=== PATIENT | female | born 1995 | race Caucasian/White ===

== ENCOUNTER 2017-10-18 15:28 | Emergency (ER) | payer OTHER ==
--- NOTE | 2017-10-18 16:50 | ER ---
Nurse's Notes [facility] Name: Anthony Johnson Age: 21 yrs Sex: Female : 1995 Arrival Date: 10/18/2017 Time: 15:29 Bed 19 Private MD: Diagnosis: Cellulitis of right lower limb;abrasion and avulsion areas to right lower leg Presentation: 10/18 15:46 Presenting complaint: Patient states: Painful wound to RIGHT lower leg after jumping hb into [place] 2 nights ago. Transition of care: patient was not received from another setting of care. Onset of symptoms was October 16, 2017. Care prior to arrival: None. 15:46 Method Of Arrival: Ambulatory hb 15:46 Acuity: BAM 4 hb Triage Assessment: 16:38 General: Appears in no apparent distress. uncomfortable, Behavior is calm, cooperative, hj appropriate for age. Pain: Complains of pain in right leg. 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 - Social history:: Smoking status: Patient/guardian denies using tobacco. Screenin:37 Abuse screen: Denies threats or abuse. Denies injuries from another. Nutritional hj screening: No deficits noted. Tuberculosis screening: No symptoms or risk factors identified. Fall Risk None identified. Vital Signs: 15:45 BP 138 / 81; Pulse 83; Resp 16; Temp 98.1; Pulse Ox 100% on R/A; Weight 72.57 kg; hb Height 5 ft. (152.40 cm); Pain 10/10; 17:14 BP 132 / 75; Pulse 85; Resp 18; Pulse Ox 100% on R/A; hj 15:45 Body Mass Index 31.25 (72.57 kg, 152.40 cm) hb ED Course: 15:29 Patient arrived in ED. as 15:48 Triage completed. hb 15:49 Arm band placed on left wrist. hb 16:30 [facility] snw 16:30 Elliott Hernandez MD is Attending Physician. snw 16:37 Skinny Henao, RN is Primary Nurse. hj 16:38 Patient has correct armband on for positive identification. Placed in gown. Bed in low hj position. Call light in reach. Side rails up X 1. 17:14 No provider procedures requiring assistance completed. Patient did not have IV access hj during this emergency room visit. Administered Medications: 16:42 Drug: Doxycycline 100 mg Route: PO; hj 17:06 Follow up: Response: No adverse reaction hj 16:42 Drug: Bactrim (160 mg-800 mg (DS) 1 tablet Route: PO; hj 17:06 Follow up: Response: No adverse reaction hj 16:42 Drug: [place] 5 mg-325 mg 1 tabs Route: PO; hj 17:06 Follow up: Response: No adverse reaction; Pain is decreased hj Outcome: 16:49 Discharge ordered by MD. snw 17:14 Discharged to home ambulatory, with family. hj 17:14 Condition: stable 17:14 Discharge instructions given to patient, family, Instructed on discharge instructions, follow up and referral plans. medication usage, Demonstrated understanding of instructions, follow-up care, medications, Prescriptions given X 3. 17:15 Patient left the ED. hj Addendum: 10/21/2017 18:29 Addendum: Culture Results: Positive wound culture. Bacteria is resistant to, has i w intermediate sensitivity, or is not tested against prescribed antibiotics. Report given to DONITA for further evaluation and then to roll up guider operator for follow up with patient. Phone call Attempt #1 pt did not answer, no voice mail. Signatures: Bindu Murray, DAVIDC PRESALES ENGINEER-Sarah Beth Coelho Irene, RN RN Skinny Henao, Stephie Mittal RN, RN RN
--- NOTE | 2017-10-18 16:50 | EDPHYS ---
Physician Documentation [facility] Name: Anthony Johnson Age: 21 yrs Sex: Female : 1995 Arrival Date: 10/18/2017 Time: 15:29 Bed 19 Private MD: ED Physician Elliott Hernandez HPI: 10/18 16:46 This 21 yrs old Female presents to ER via Ambulatory with complaints of Wound snw Check. 16:46 Patient presents to ED for recheck of: cellulitis. The affected area is on the right snw leg. Previous treatment: none. The patient has not experienced similar symptoms in the past. The patient has not recently seen a physician. last tetanus 2-3 years ago. 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 - Social history:: Smoking status: Patient/guardian denies using tobacco. ROS: 16:43 Constitutional: Negative for fever, chills, and weight loss, Eyes: Negative for injury, snw pain, redness, and discharge, ENT: Negative for injury, pain, and discharge, Neck: Negative for injury, pain, and swelling, Cardiovascular: Negative for chest pain, palpitations, and edema, Respiratory: Negative for shortness of breath, cough, wheezing, and pleuritic chest pain, Abdomen/GI: Negative for abdominal pain, nausea, vomiting, diarrhea, and constipation, Back: Negative for injury and pain, : Negative for injury, bleeding, discharge, and swelling, MS/Extremity: Negative for injury and deformity, Neuro: Negative for headache, weakness, numbness, tingling, and seizure. 16:43 Skin: Positive for abrasion(s), cellulitis, wounds to right leg with foul odor and surrounding redness. Exam: 16:43 Constitutional: This is a well developed, well nourished patient who is awake, alert, snw and in no acute distress. Head/Face: Normocephalic, atraumatic. Eyes: Pupils equal round and reactive to light, extra-ocular motions intact. Lids and lashes normal. Conjunctiva and sclera are non-icteric and not injected. Cornea within normal limits. Periorbital areas with no swelling, redness, or edema. ENT: Nares patent. No nasal discharge, no septal abnormalities noted. Tympanic membranes are normal and external auditory canals are clear. Oropharynx with no redness, swelling, or masses, exudates, or evidence of obstruction, uvula midline. Mucous membranes moist. Neck: Trachea midline, no thyromegaly or masses palpated, and no cervical lymphadenopathy. Supple, full range of motion without nuchal rigidity, or vertebral point tenderness. No Meningismus. Chest/axilla: Normal chest wall appearance and motion. Nontender with no deformity. No lesions are appreciated. Cardiovascular: Regular rate and rhythm with a normal S1 and S2. No gallops, murmurs, or rubs. Normal PMI, no JVD. No pulse deficits. Respiratory: Lungs have equal breath sounds bilaterally, clear to auscultation and percussion. No rales, rhonchi or wheezes noted. No increased work of breathing, no retractions or nasal flaring. Abdomen/GI: Soft, non-tender, with normal bowel sounds. No distension or tympany. No guarding or rebound. No evidence of tenderness throughout. Back: No spinal tenderness. No costovertebral tenderness. Full range of motion. MS/ Extremity: Pulses equal, no cyanosis. Neurovascular intact. Full, normal range of motion. Neuro: Awake and alert, GCS 15, oriented to person, place, time, and situation. Cranial nerves II-XII grossly intact. Motor strength 5/5 in all extremities. Sensory grossly intact. Cerebellar exam normal. Normal gait. 16:43 Skin: Appearance: normal except for affected area, injury, avulsion(s), a small of the right upper lower leg, and right anterior ankle, area to right ankle with moderate cellulitis, foul odor. Vital Signs: 15:45 BP 138 / 81; Pulse 83; Resp 16; Temp 98.1; Pulse Ox 100% on R/A; Weight 72.57 kg; hb Height 5 ft. (152.40 cm); Pain 10/10; 17:14 BP 132 / 75; Pulse 85; Resp 18; Pulse Ox 100% on R/A; hj 15:45 Body Mass Index 31.25 (72.57 kg, 152.40 cm) hb MDM: 16:30 Patient medically screened. snw 16:50 Data reviewed: vital signs, nurses notes. Counseling: I had a detailed discussion with snw the patient and/or guardian regarding: the historical points, exam findings, and any diagnostic results supporting the discharge/admit diagnosis, the presence of at least one elevated blood pressure reading (>120/80) during this emergency department visit, the need for outpatient follow up, to return to the emergency department if symptoms worsen or persist or if there are any questions or concerns that arise at home. Special discussion: I have referred the patient to see his PCP for further evaluation of high blood pressure. I discussed in detail with the patient the higher chance of wound infection based on his presenting history. Based on the history and exam findings, there is no indication for further emergent testing or inpatient evaluation. I discussed with the patient/guardian the need to see the primary care provider for further evaluation of the symptoms. 10/18 16:42 Order name: Wound Culture [facility] 10/18 16:42 Order name: Wound Care; Complete Time: 17:06 snw 10/18 16:42 Order name: Wound dressing; Complete Time: 17:06 snw Administered Medications: 16:42 Drug: Doxycycline 100 mg Route: PO; hj 17:06 Follow up: Response: No adverse reaction hj 16:42 Drug: Bactrim (160 mg-800 mg (DS) 1 tablet Route: PO; hj 17:06 Follow up: Response: No adverse reaction hj 16:42 Drug: [place] 5 mg-325 mg 1 tabs Route: PO; hj 17:06 Follow up: Response: No adverse reaction; Pain is decreased Disposition: 18:42 Co-signature as Attending Physician, Elliott Hernandez MD. rn Disposition: 10/18/17 16:49 Discharged to Home. Impression: Cellulitis of right lower limb, abrasion and avulsion areas to right lower leg. - Condition is Stable. - Discharge Instructions: Cellulitis, Heat Therapy. - Prescriptions for Bactroban 2 % Topical Ointment - Apply to affected area 1 application by TOPICAL route every 12 hours; 30 gram. Doxycycline Hyclate 100 mg Oral Tablet - take 1 tablet by ORAL route every 12 hours; 20 tablet. Diclofenac Sodium 75 mg Oral Tablet Sustained Release - take 1 tablet by ORAL route 2 times per day; 30 tablet. - Work release form, Medication Reconciliation Form, Thank You Letter, Antibiotic Education, Prescription Opioid Use form. - Follow up: Private Physician; When: 2 - 3 days; Reason: Recheck today's complaints, Continuance of care, Re-evaluation by your physician. Follow up: Emergency Department; When: As needed; Reason: Worsening of condition. Signatures: Dispatcher [employer] EDMS Bindu Murray, JASVIR-C COMMUNITY LIAISON-Csnw Elliott Hernandez MD MD rn Joaquin, Henry, RN RN hj Baxter, Heather, RN RN
[2017-10-18] MEDS ORDERED: SMZ./TMP. 800/160 MG TABLET ONE (17:10)
[2017-10-18] MEDS ORDERED: DOXYCYCLINE 100 MG CAP PO ONE (17:10)
[2017-10-18] MEDS ORDERED: HYDROCODONE/APAP 5/325 MG TAB ONE (17:10)
[2017-10-18 17:21] VITALS: TEMP 98.1; O2SAT 100
[2017-10-18 17:22] VITALS: BP 132/75
== END 2017-10-18 17:15 | disposition home or self-care (01) ==
LOC: ER 15:28
DX: L03.115 Cellulitis of right lower limb (principal)
CPT/HCPCS: 87070; 87077; 87186; 87205; 99283

== ENCOUNTER 2017-12-24 13:50 | Emergency (ER) | payer OTHER ==
[2017-12-24 15:25] LABS: Urine Blood NEGATIVE (NEG); Urine Glucose NEGATIVE (NEG); Urine Protein NEGATIVE (NEG)
[2017-12-24] MEDS ORDERED: ONDANSETRON 4 MG/2 ML VIAL ONE (15:27)
[2017-12-24] MEDS ORDERED: CEFTRIAXONE/SWI 1gm 1 GM/10 ML SYR ONE (15:27)
[2017-12-24] MEDS ORDERED: MORPHINE 4 MG/ML SYR ONE (15:27)
[2017-12-24] MEDS ORDERED: NA CHLORIDE 0.9% 1,000 ML ONE (15:28)
[2017-12-24 15:38] LABS: Urine Bacteria 20-50 /HPF (<20); Urine Culture Reflex Order REFLEXED; Urine Mucus 2+ /HPF (NONE SEEN); Urine RBC <5 /HPF (NONE SEEN)
[2017-12-24 15:41] LABS: Absolute Monocytes 0.8 K/uL (0.1-1.3); Absolute Neutrophil 8.5 K/uL (1.8-8.0); Basophils % 0.3 % (0-1.3); Eosinophils % 0.3 % (0-4.4); Hematocrit 42.7 % (36.0-45.0); Lymphocytes % 9.2 % (15.3-44.8); MCH 27.5 pg (27.0-35.0); MCV 83.5 fL (80-100); MPV 9.2 fL (7.6-11.3); RBC Red Blood Cell Count 5.11 M/uL (3.86-4.86)
--- NOTE | 2017-12-24 15:50 | RAD REPORT ---
EXAM DESCRIPTION: CT - Stone Protocol - 12/24/2017 3:29 pm CLINICAL HISTORY: Left back pain, left CVA tenderness COMPARISON: None. TECHNIQUE: Axial 5 mm thick images were obtained without oral or IV contrast. The [place] span s the entirety of the system partially obscuring uppermost abdomen and lung bases. All CT scans are performed using dose optimization technique as appropriate and may include automated exposure control or mA/KV adjustment according to patient size. FINDINGS: No hydronephrosis is present and no obstructing ureteral calculi. No suspicious renal mass es. Isodense masses and pyelonephritis are not excluded on a stone protocol CT scan. Numerous phlebol iths are seen along the pelvic floor. Urinary bladder is mostly contracted. No bladder calculi. Uteru s, ovaries and adnexa show no suspicious findings. No fallopian tube dilatation. Imaged portions of the liver, spleen and pancreas show no suspicious findings on non-contrast imaging . No gallbladder or biliary tree abnormality identified. No significant adrenal finding. No suspicious bowel findings. No appendicitis findings. No hernia, mass or bulky lymphadenopathy noted. No free air, free fluid or inflammatory stranding. No significant bony abnormality. IMPRESSION: Negative CT stone protocol study. Isodense masses and pyelonephritis are not excluded on stone protocol technique.
[2017-12-24] MEDS ORDERED: MEPERIDINE HCL 25 MG/0.5 ML ONE (16:09)
[2017-12-24] MEDS ORDERED: HYDROCODONE/APAP 10/325 TAB ONE (16:10)
[2017-12-24 16:51] LABS: Bicarbonate 24 mEq/L (21-31); Glucose Level 103 mg/dL (65-120); Potassium 3.4 mEq/L (3.6-5.0); Sodium Level 136 mEq/L (135-145)
[2017-12-24 16:58] LABS: ALT/SGPT 17 IU/L (10-60); AST/SGOT 16 IU/L (10-42); Albumin 3.9 g/dL (3.2-5.5); Alkaline Phosphatase 57 IU/L (42-121); BUN Blood Urea Nitrogen 6 mg/dL (6-20); Bilirubin Direct 0.1 mg/dL (0-0.2); Bilirubin Total 0.3 mg/dL (0.3-1.2); Protein, Total 7.5 g/dL (6.0-8.3)
[2017-12-24] MEDS ORDERED: FENTANYL CITR 100 MCG/2 ML ONE (18:06)
--- NOTE | 2017-12-24 19:09 | ER ---
Nurse's Notes [facility] Name: Anthony Johnson Age: 22 yrs Sex: Female : 1995 Arrival Date: 12/24/2017 Time: 13:54 Bed 13 Private MD: None, None Diagnosis: Cystitis;Acute tubulo-interstitial nephritis;Hypokalemia Presentation: 12/24 14:03 Presenting complaint: Patient states: Left mid back pain since yesterday. Transition of care: patient was not received from another setting of care. Onset of symptoms was December 23, 2017. Risk Assessment: Do you want to hurt yourself or someone else? Patient reports no desire to harm self or others. Care prior to arrival: None. 14:03 Method Of Arrival: Ambulatory 14:03 Acuity: BAM 3 19:10 Initial Sepsis Screen: Does the patient meet any 2 criteria? No. Patient's initial ea sepsis screen is negative. Does the patient have a suspected source of infection? No. Patient's initial sepsis screen is negative. Triage Assessment: 14:04 General: Appears in no apparent distress. uncomfortable, Behavior is calm, cooperative, aj appropriate for age. Pain: Complains of pain in left mid back. Neuro: Level of Consciousness is awake, alert, obeys commands, Oriented to person, place, time, situation, Appropriate for age. Respiratory: Airway is patent Respiratory effort is even, unlabored, Respiratory pattern is regular, symmetrical. : Reports pain in left in lower back. Musculoskeletal: Circulation, motion, and sensation intact. 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 - Social history:: Smoking status: Patient/guardian denies using tobacco. - Ebola Screening: : Patient negative for fever greater than or equal to 101.5 degrees Fahrenheit, and additional compatible Ebola Virus Disease symptoms Patient denies exposure to infectious person Patient denies travel to an Ebola-affected area in the 21 days before illness onset No symptoms or risks identified at this time. Screenin:59 Abuse screen: Denies threats or abuse. Denies injuries from another. Nutritional jl7 screening: No deficits noted. Tuberculosis screening: No symptoms or risk factors identified. Fall Risk None identified. Assessment: 14:59 General: Appears in no apparent distress. uncomfortable, Behavior is calm, cooperative. jl7 Pain: Complains of pain in right mid back Pain currently is 10 out of 10 on a pain scale. Pain began 2-3 days ago. Is continuous. Neuro: Level of Consciousness is awake, alert, obeys commands, Oriented to person, place, time, situation. Cardiovascular: Patient's skin is warm and dry. Respiratory: Airway is patent Respiratory effort is even, unlabored, Respiratory pattern is regular, symmetrical. GI: No signs and/or symptoms were reported involving the gastrointestinal system. : No signs and/or symptoms were reported regarding the genitourinary system. Denies burning with urination. EENT: No signs and/or symptoms were reported regarding the EENT system. Derm: Skin is pink, warm \\T\\ dry. 16:03 Reassessment: pt c/o left flank pain, states she got no relief from morphine, Dr. son Valentine notified, new orders placed in SEP. 17:00 Reassessment: No changes from previously documented assessment. Patient and/or family jl7 updated on plan of care and expected duration. Pain level reassessed. Patient is alert, oriented x 3, equal unlabored respirations, skin warm/dry/pink. 18:00 Reassessment: No changes from previously documented assessment. Patient and/or family jl7 updated on plan of care and expected duration. Pain level reassessed. Patient is alert, oriented x 3, equal unlabored respirations, skin warm/dry/pink. 18:56 Reassessment: Pt reports continued pain, rated 10/10. Pt states "The meds have made me jl7 tired but the pain is still there." Provider notified, no news orders received at this time. 19:10 General: Appears uncomfortable, Behavior is calm, cooperative. Pain: Complains of pain ea in right mid back and left mid back. Neuro: Level of Consciousness is awake, alert, obeys commands, Oriented to person, place, time, situation. Cardiovascular: Patient's skin is warm and dry. Respiratory: Airway is patent Respiratory effort is even, unlabored, Respiratory pattern is regular, symmetrical. GI: No signs and/or symptoms were reported involving the gastrointestinal system. : No signs and/or symptoms were reported regarding the genitourinary system. EENT: No signs and/or symptoms were reported regarding the EENT system. Derm: Skin is pink, warm \\T\\ dry. 19:43 Reassessment: Patient and/or family updated on plan of care and expected duration. Pain ea level reassessed. Patient is alert, oriented x 3, equal unlabored respirations, skin warm/dry/pink. Discharge instructions given to patient, verbalized the understanding of instruction. Vital Signs: 14:04 BP 126 / 74; Pulse 107; Resp 20; Temp 98.4; Pulse Ox 98% on R/A; Weight 72.57 kg; aj Height 5 ft. 0 in. (152.40 cm); 18:00 BP 120 / 56; Pulse 60; Resp 16 S; Pulse Ox 97% on R/A; jl7 19:10 BP 139 / 68; Pulse 68; Resp 18; Temp 98(O); Pulse Ox 99% on R/A; Pain 5/10; ea 14:04 Body Mass Index 31.25 (72.57 kg, 152.40 cm) ED Course: 13:54 Patient arrived in ED. mr 13:54 None, None is Private Physician. mr 14:04 Triage completed. aj 14:04 Arm band placed on right wrist. Patient placed in an exam room. aj 14:06 Rashad Valentine MD is Attending Physician. kdr 14:08 Keith Cárdenas, GUADALUPE is Primary Nurse. jl7 14:59 Patient has correct armband on for positive identification. Bed in low position. Call jl7 light in reach. Side rails up X 1. Pulse ox on. NIBP on. 15:07 Radiology exam delayed due to test not completed at this time. vr 15:15 Inserted saline lock: 22 gauge in left antecubital area, using aseptic technique. Blood mh5 collected. 15:[address] vr 15:28 CT completed. Patient tolerated procedure well. Patient moved back from CT. vm2 15:29 CT Stone Protocol In Process Unspecified. EDMS 15:30 Initial lab(s) drawn, by me, sent to lab. First set of blood cultures drawn Second set mh5 of blood cultures drawn by me, Urine collected: clean catch specimen, clear. 15:42 Warm blanket given. Pillow given. Pulse ox on. NIBP on. mh5 16:20 Lab(s) recollected, by me, sent to lab. jl7 18:56 Attending Physician role handed off by Rashad Valentine MD james 18:56 Seven Woods MD is Attending Physician. [facility] 18:59 Report given to GUADALUPE Bryant. jl7 19:39 No provider procedures requiring assistance completed. IV discontinued, intact, ea bleeding controlled, No redness/swelling at site. Pressure dressing applied. Administered Medications: 15:30 Drug: NS 0.9% 1000 ml Route: IV; Rate: 1 bolus; Site: left antecubital; jl7 16:30 Follow up: IV Status: Completed infusion 7 15:31 Drug: Rocephin - (cefTRIAXone) 1 grams {Note: adminstered over 2 minutes.} Route: IVPB; jl7 Infused Over: 30 mins; Site: left antecubital; 15:45 Follow up: Response: No adverse reaction; IV Status: Completed infusion jl7 15:34 Drug: Zofran 4 mg Route: IVP; Site: left antecubital; jl7 15:45 Follow up: Response: No adverse reaction jl7 15:37 Drug: morphine 4 mg Route: IVP; Site: left antecubital; jl7 16:00 Follow up: Response: No adverse reaction; Pain is unchanged, physician notified jl7 16:10 Drug: Demerol 25 mg Route: IVP; Site: left antecubital; jl7 16:24 Follow up: Response: No adverse reaction; Pain is unchanged, physician notified jl7 16:24 Drug: [place] 10 mg-325 mg 1 tabs Route: PO; jl7 18:00 Follow up: Response: Pain is unchanged, physician notified jl7 18:09 Drug: fentaNYL (PF) 50 mcg Route: IVP; Site: left antecubital; jl7 18:55 Follow up: Response: Pain is unchanged, physician notified jl7 19:10 Drug: Cipro 500 mg Route: PO; ea 19:30 Follow up: Response: No adverse reaction ea Outcome: 19:09 Discharge ordered by . james 19:39 Discharged to home ambulatory, with family. ea 19:39 Condition: improved 19:39 Discharge instructions given to patient, Instructed on discharge instructions, follow up and referral plans. medication usage, Demonstrated understanding of instructions, follow-up care, medications, Prescriptions given X 3. 19:44 Patient left the ED. ea Addendum: 12/27/2017 13:11 Addendum: Culture Results: Positive urine culture. No further action required. Bacteria s s sensitive to prescribed antibiotic. Signatures: Dispatcher [employer] EDSowmya Suazo, RN Seven Bingham MD MD cha Rittger, Kevin, MD MD kdr Rivera, Maria mr Williams, Irene, RN Gertrudis Flores, RN Vanessa Webster Maria Keith Frederick RN Vanessa Mcgee Elena, RN RN ea Corrections: (The following items were deleted from the chart) 12/24 18:17 18:00 BP 120 / 56; Resp 60bpm; Spontaneous; Pulse Ox 97% RA; jl7 marilee
--- NOTE | 2017-12-24 19:10 | EDPHYS ---
Physician Documentation [facility] Name: Anthony Johnson Age: 22 yrs Sex: Female : 1995 Arrival Date: 12/24/2017 Time: 13:54 Bed 13 Private MD: None, None ED Physician Seven Woods HPI: 12/24 17:08 This 22 yrs old Female presents to ER via Ambulatory with complaints of Back kdr Pain. 17:08 The patient presents with pain that is acute. 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 - Social history:: Smoking status: Patient/guardian denies using tobacco. - Ebola Screening: : Patient negative for fever greater than or equal to 101.5 degrees Fahrenheit, and additional compatible Ebola Virus Disease symptoms Patient denies exposure to infectious person Patient denies travel to an Ebola-affected area in the 21 days before illness onset No symptoms or risks identified at this time. ROS: 19:02 Constitutional: Negative for fever, chills, and weight loss, Eyes: Negative for injury, james pain, redness, and discharge, ENT: Negative for injury, pain, and discharge, Neck: Negative for injury, pain, and swelling, Cardiovascular: Negative for chest pain, palpitations, and edema, Respiratory: Negative for shortness of breath, cough, wheezing, and pleuritic chest pain, Abdomen/GI: Negative for abdominal pain, nausea, vomiting, diarrhea, and constipation, : Negative for injury, bleeding, discharge, and swelling, MS/Extremity: Negative for injury and deformity, Skin: Negative for injury, rash, and discoloration, Neuro: Negative for headache, weakness, numbness, tingling, and seizure, Psych: Negative for depression, anxiety, suicide ideation, homicidal ideation, and hallucinations, Allergy/Immunology: Negative for hives, rash, and allergies, Endocrine: Negative for neck swelling, polydipsia, polyuria, polyphagia, and marked weight changes, Hematologic/Lymphatic: Negative for swollen nodes, abnormal bleeding, and unusual bruising. 19:02 Back: Positive for pain at rest, pain with movement, flank pain, on the left. Exam: 19:02 Constitutional: This is a well developed, well nourished patient who is awake, alert, james and in no acute distress. Head/Face: Normocephalic, atraumatic. Eyes: Pupils equal round and reactive to light, extra-ocular motions intact. Lids and lashes normal. Conjunctiva and sclera are non-icteric and not injected. Cornea within normal limits. Periorbital areas with no swelling, redness, or edema. ENT: Nares patent. No nasal discharge, no septal abnormalities noted. Tympanic membranes are normal and external auditory canals are clear. Oropharynx with no redness, swelling, or masses, exudates, or evidence of obstruction, uvula midline. Mucous membranes moist. Neck: Trachea midline, no thyromegaly or masses palpated, and no cervical lymphadenopathy. Supple, full range of motion without nuchal rigidity, or vertebral point tenderness. No Meningismus. Chest/axilla: Normal chest wall appearance and motion. Nontender with no deformity. No lesions are appreciated. Cardiovascular: Regular rate and rhythm with a normal S1 and S2. No gallops, murmurs, or rubs. Normal PMI, no JVD. No pulse deficits. Respiratory: Lungs have equal breath sounds bilaterally, clear to auscultation and percussion. No rales, rhonchi or wheezes noted. No increased work of breathing, no retractions or nasal flaring. Abdomen/GI: Soft, non-tender, with normal bowel sounds. No distension or tympany. No guarding or rebound. No evidence of tenderness throughout. Female : Normal external genitalia. Skin: Warm, dry with normal turgor. Normal color with no rashes, no lesions, and no evidence of cellulitis. MS/ Extremity: Pulses equal, no cyanosis. Neurovascular intact. Full, normal range of motion. Neuro: Awake and alert, GCS 15, oriented to person, place, time, and situation. Cranial nerves II-XII grossly intact. Motor strength 5/5 in all extremities. Sensory grossly intact. Cerebellar exam normal. Normal gait. Psych: Awake, alert, with orientation to person, place and time. Behavior, mood, and affect are within normal limits. 19:02 Back: pain, that is mild, ROM is normal, normal spinal alignment noted, CVA tenderness, that is mild, that is moderate, is noted on the left. Vital Signs: 14:04 BP 126 / 74; Pulse 107; Resp 20; Temp 98.4; Pulse Ox 98% on R/A; Weight 72.57 kg; aj Height 5 ft. 0 in. (152.40 cm); 18:00 BP 120 / 56; Pulse 60; Resp 16 S; Pulse Ox 97% on R/A; jl7 19:10 BP 139 / 68; Pulse 68; Resp 18; Temp 98(O); Pulse Ox 99% on R/A; Pain 5/10; ea 14:04 Body Mass Index 31.25 (72.57 kg, 152.40 cm) aj MDM: 17:50 Patient medically screened. cp 19:02 Data reviewed: vital signs, nurses notes, lab test result(s), radiologic studies, CT james scan. 12/24 15:05 Order name: Basic Metabolic Panel; Complete Time: 18:57 [facility] 12/24 15:05 Order name: CBC with Diff; Complete Time: 16:01 [facility] 12/24 15:05 Order name: Creatinine for Radiology; Complete Time: 18:57 [facility] 12/24 15:05 Order name: Hepatic Function; Complete Time: 18:57 [facility] 12/24 15:05 Order name: Urine Microscopic Only; Complete Time: 16:01 [facility] 12/24 15:05 Order name: Blood Culture Adult (2) [facility] 12/24 15:05 Order name: CT Stone Protocol; Complete Time: 16:01 [facility] 12/24 15:05 Order name: Urine Culture [facility] 12/24 15:09 Order name: Urine Dipstick--Ancillary (enter results); Complete Time: 15:30 12/24 15:09 Order name: Urine --Ancillary (enter results); Complete Time: 15:30 12/24 15:05 Order name: IV Saline Lock; Complete Time: 15:28 [facility] 12/24 15:05 Order name: Labs collected and sent; Complete Time: 15:28 [facility] 12/24 15:05 Order name: Urine Dipstick-Ancillary (obtain specimen); Complete Time: 15:20 [facility] 12/24 15:45 Order name: Labs - recollect needed; Complete Time: 16:26 12/24 19:13 Order name: PO challenge: po juice; Complete Time: 19:43 james Administered Medications: 15:30 Drug: NS 0.9% 1000 ml Route: IV; Rate: 1 bolus; Site: left antecubital; jl7 16:30 Follow up: IV Status: Completed infusion jl7 15:31 Drug: Rocephin - (cefTRIAXone) 1 grams {Note: adminstered over 2 minutes.} Route: IVPB; jl7 Infused Over: 30 mins; Site: left antecubital; 15:45 Follow up: Response: No adverse reaction; IV Status: Completed infusion jl7 15:34 Drug: Zofran 4 mg Route: IVP; Site: left antecubital; jl7 15:45 Follow up: Response: No adverse reaction jl7 15:37 Drug: morphine 4 mg Route: IVP; Site: left antecubital; jl7 16:00 Follow up: Response: No adverse reaction; Pain is unchanged, physician notified jl7 16:10 Drug: Demerol 25 mg Route: IVP; Site: left antecubital; jl7 16:24 Follow up: Response: No adverse reaction; Pain is unchanged, physician notified jl7 16:24 Drug: Divernon 10 mg-325 mg 1 tabs Route: PO; jl7 18:00 Follow up: Response: Pain is unchanged, physician notified jl7 18:09 Drug: fentaNYL (PF) 50 mcg Route: IVP; Site: left antecubital; jl7 18:55 Follow up: Response: Pain is unchanged, physician notified jl7 19:10 Drug: Cipro 500 mg Route: PO; ea 19:30 Follow up: Response: No adverse reaction ea Disposition: 12/24/17 19:09 Discharged to Home. Impression: Cystitis, Acute tubulo-interstitial nephritis, Hypokalemia. - Condition is Stable. - Discharge Instructions: Potassium Content of Foods, Dysuria, Pyelonephritis, Adult, [id number], Hypokalemia. - Prescriptions for Ibuprofen 600 mg Oral Tablet - take 1 tablet by ORAL route every 8 hours As needed take with food; 21 tablet. Tylenol- Codeine #3 300-30 mg Oral Tablet - take 2 tablet by ORAL route every 6 hours As needed; 30 tablet. Cipro 500 mg Oral Tablet - take 1 tablet by ORAL route every 12 hours for 7 days; 14 tablet. - Medication Reconciliation Form, Thank You Letter, Antibiotic Education, Prescription Opioid Use form. - Follow up: Private Physician; When: 2 - 3 days; Reason: Recheck today's complaints, Continuance of care, Re-evaluation by your physician. - Problem is new. - Symptoms have improved. Signatures: Dispatcher [employer] EDVT Mera Cano Sowmya Avila, RN Seven Bingham MD MD cha Rittger, Kevin, MD MD kdr Page, Corey, PA PA cp Leal, Jahala RN RN jl7 Annette Frank RN RN ea Corrections: (The following items were deleted from the chart) 17:35 17:03 Transvaginal Ob+US.RAD.BRZ ordered. [facility] 19:10 19:09 12/24/2017 19:09 Discharged to Home. Impression: Cystitis; Acute james tubulo-interstitial nephritis. Condition is Stable. Forms are Medication Reconciliation Form, Thank You Letter, Antibiotic Education, Prescription Opioid Use. Follow up: Private Physician; When: 2 - 3 days; Reason: Recheck today's complaints, Continuance of care, Re-evaluation by your physician. Problem is new. Symptoms have improved. [facility] 19:44 19:10 12/24/2017 19:09 Discharged to Home. Impression: Cystitis; Acute ea tubulo-interstitial nephritis; Hypokalemia. Condition is Stable. Discharge Instructions: Dysuria, Pyelonephritis, Adult, [id number]. Prescriptions for Ibuprofen 600 mg Oral Tablet - take 1 tablet by ORAL route every 8 hours As needed take with food; 21 tablet, Tylenol-Codeine #3 300-30 mg Oral Tablet - take 2 tablet by ORAL route every 6 hours As needed; 30 tablet, Cipro 500 mg Oral Tablet - take 1 tablet by ORAL route every 12 hours for 7 days; 14 tablet. and Forms are Medication Reconciliation Form, Thank You Letter, Antibiotic Education, Prescription Opioid Use. Follow up: Private Physician; When: 2 - 3 days; Reason: Recheck today's complaints, Continuance of care, Re-evaluation by your physician. Problem is new. Symptoms have improved. james
[2017-12-24] MEDS ORDERED: CIPROFLOXACIN HCL 500 MG TAB ONE (19:30)
[2017-12-24 19:53] VITALS: BP 139/68; TEMP 98; O2SAT 99
== END 2017-12-24 19:44 | disposition home or self-care (01) ==
LOC: ER 13:50
DX: N30.90 Cystitis, unspecified without hematuria (principal); N10 Acute pyelonephritis; E87.6 Hypokalemia
CPT/HCPCS: 36415; 74176; 76377; 80048; 80076; 81003; 81015; 81025; 85025; 87040; 87077; 87086; 87088; 87186; 96361; 96374; 96375; 99284; J0696; J2175; J2405; J3010; J7030

== ENCOUNTER 2018-01-17 07:46 | Emergency (ER) | payer OTHER ==
[2018-01-17] MEDS ORDERED: TETRACAINE HCL 0.5% 2ML OPTH ONE (08:12)
[2018-01-17] MEDS ORDERED: FLUORESCEIN SODIUM 0.6 MG/WRAP ONE (08:12)
--- NOTE | 2018-01-17 08:44 | EDPHYS ---
Physician Documentation [facility] Name: Anthony Johnson Age: 22 yrs Sex: Female : 1995 Arrival Date: 01/17/2018 Time: 07:49 Bed 14 Private MD: None, None ED Physician Rashad Valentine HPI: 01/17 08:05 This 22 yrs old Female presents to ER via Ambulatory with complaints of Eye cp Problem. 08:05 The patient is experiencing pain, redness, to the right eye. cp 08:05 Onset: The symptoms/episode began/occurred 3 week(s) ago. Duration: the symptoms are cp continuous. Associated signs and symptoms: Pertinent negatives: ear ache, fever, headache. Patient wears soft contacts. Patient reports she has been using unknown antibiotic eye drops that were prescribed for her son w/o improvement. 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 - Social history:: Smoking status: Patient/guardian denies using tobacco, Patient/guardian denies using alcohol. - Ebola Screening: : Patient negative for fever greater than or equal to 101.5 degrees Fahrenheit, and additional compatible Ebola Virus Disease symptoms Patient denies exposure to infectious person Patient denies travel to an Ebola-affected area in the 21 days before illness onset. ROS: 08:10 Constitutional: Negative for body aches, chills, fever, poor PO intake. cp 08:10 Eyes: Positive for pain, redness, Negative for discharge, vision loss. cp 08:10 ENT: Negative for drainage from ear(s), ear pain, sore throat, difficulty swallowing, difficulty handling secretions. 08:10 Cardiovascular: Negative for chest pain. 08:10 Respiratory: Negative for cough, shortness of breath, wheezing. 08:10 Abdomen/GI: Negative for abdominal pain, nausea, vomiting, and diarrhea. 08:10 Skin: Negative for cellulitis, rash. 08:10 Neuro: Negative for altered mental status, headache, weakness. 08:10 All other systems are negative. Exam: 08:30 Visual Acuity: I have reviewed the nursing documentation. cp 08:30 Head/Face: Normocephalic, atraumatic. cp 08:30 Constitutional: The patient appears in no acute distress, alert, awake, well developed, well nourished. 08:30 Eyes: Periorbital structures: appear normal, Pupils: equal, round, and reactive to light and accomodation, Extraocular movements: intact throughout, Conjunctiva: injected, in the right eye, Corneas: abrasion, is not appreciated, foreign body, is not appreciated, a fluorescein strip employed to appreciate the findings, Lids and lashes: appear normal, bilaterally, Examination of the other eye reveals no obvious gross abnormality. 08:30 ENT: External ear(s): are unremarkable, Ear canal(s): are normal, clear, TM's: bulging, is not appreciated, bilaterally, dullness, bilaterally, erythema, is not appreciated, bilaterally, Nose: is normal, Mouth: is normal, no lip abnormalities, no mucosal abnormalities, Posterior pharynx: is normal, airway is patent, no erythema, no exudate. 08:30 Neck: ROM/movement: is normal, is supple, without pain, no range of motions limitations, no nuchal rigidity, Lymph nodes: no appreciated lymphadenopathy. 08:30 Chest/axilla: Inspection: normal, Palpation: is normal, no crepitus, no tenderness. 08:30 Cardiovascular: Rate: normal, Rhythm: regular. 08:30 Respiratory: the patient does not display signs of respiratory distress, Respirations: normal, no use of accessory muscles, no retractions, no splinting, no tachypnea, labored breathing, is not present, Breath sounds: are clear throughout, no decreased breath sounds, no stridor, no wheezing. 08:30 Abdomen/GI: Exam negative for discomfort, distension, guarding, Inspection: abdomen appears normal. 08:30 Skin: cellulitis, is not appreciated, no rash present. Vital Signs: 08:07 Weight 72.57 kg; Height 5 ft. 0 in. (152.40 cm); 08:07 BP 127 / 76; Pulse 87; Resp 17; Temp 99.1(O); Pulse Ox 100% on R/A; mh5 08:07 Body Mass Index 31.25 (72.57 kg, 152.40 cm) Visual Acuity: 08:18 Left Eye Visual acuity 20/30, Normal, React To Light, Reactive To Accomodation; Right hj Eye Visual acuity 20/100, React To Light, Reactive To Accomodation; Both Eyes Visual acuity 20/25; Without Lenses; MDM: 08:02 Patient medically screened. cp 08:05 Differential diagnosis: Corneal abrasion of right eye. Corneal ulcer of right eye. cp Foreign body in right eye. Infectious conjunctivitis in right eye. 08:35 ED course: Patient reports she is wearing contact lens in left eye and has not been cp wearing lens in right eye for past 3 weeks. 08:42 Data reviewed: vital signs, nurses notes. cp 08:42 Counseling: I had a detailed discussion with the patient and/or guardian regarding: the cp historical points, exam findings, and any diagnostic results supporting the discharge/admit diagnosis, the need for outpatient follow up, an opthalmologist, to return to the emergency department if symptoms worsen or persist or if there are any questions or concerns that arise at home. Response to treatment: the patient's symptoms have mildly improved after treatment, and as a result, I will discharge patient. 01/17 08:05 Order name: Visual Acuity; Complete Time: 08:39 cp 01/17 08:05 Order name: Eye Tray; Complete Time: 08:39 cp 01/17 08:05 Order name: Fluoresene Opth strip; Complete Time: 08:39 cp Administered Medications: 08:10 Drug: Tetracaine Drops 0.5 % 1 drops Route: Ophthalmic; Site: right eye; Disposition: 09:30 Chart complete. cp 10:04 Co-signature as Attending Physician, Rashad Valentine MD I agree with the assessment and kdr plan of care. Disposition: 01/17/18 08:43 Discharged to Home. Impression: Conjunctivitis - Right Eye. - Condition is Stable. - Discharge Instructions: Conjunctivitis (Viral and Bacterial). - Prescriptions for Vigamox 0.5 % Ophthalmic Drops - instill 1 drop by OPHTHALMIC route every 8 hours for 7 days; 5 milliliter. - Medication Reconciliation Form, Thank You Letter, Antibiotic Education, Prescription Opioid Use form. - Follow up: Maxime An MD; When: 2 - 3 days; Reason: Recheck today's complaints. - Problem is new. - Symptoms are unchanged. - Notes: No use of contact lenses in right eye for next 7 days Signatures: Rashad Valentine MD MD kdr Skinny Henao RN RN hj Seven Solano PA PA cp Corrections: (The following items were deleted from the chart) 08:53 08:43 01/17/2018 08:43 Discharged to Home. Impression: Conjunctivitis - Right Eye. hj Condition is Stable. Forms are Medication Reconciliation Form, Thank You Letter, Antibiotic Education, Prescription Opioid Use. Follow up: Maxime An; When: 2 - 3 days; Reason: Recheck today's complaints. Problem is new. Symptoms are unchanged. cp
--- NOTE | 2018-01-17 08:44 | ER ---
Nurse's Notes [facility] Name: Anthony Johnson Age: 22 yrs Sex: Female : 1995 Arrival Date: 01/17/2018 Time: 07:49 Bed 14 Private MD: None, None Diagnosis: Conjunctivitis-Right Eye Presentation: 01/17 08:03 Presenting complaint: Patient states: i have the R eye problem for 3 weeks now, i wear hj contacts and i guess dirt went ot my R eye and when i took my contacts, i might have scratched it; and got irritated and it got red and it gotten worse; reports cloudy vision; pain is 10/10;. Transition of care: patient was not received from another setting of care. Onset of symptoms was January 17, 2018. Risk Assessment: Do you want to hurt yourself or someone else? Patient reports no desire to harm self or others. Initial Sepsis Screen: Does the patient meet any 2 criteria? No. Patient's initial sepsis screen is negative. Does the patient have a suspected source of infection? No. Patient's initial sepsis screen is negative. Care prior to arrival: None. 08:03 Method Of Arrival: Ambulatory 08:03 Acuity: BAM 4 hj Triage Assessment: 08:06 General: Appears in no apparent distress. uncomfortable, Behavior is calm, cooperative, hj appropriate for age. Pain: Complains of pain in right eye. EENT: Reports pain in right eye. 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 - Social history:: Smoking status: Patient/guardian denies using tobacco, Patient/guardian denies using alcohol. - Ebola Screening: : Patient negative for fever greater than or equal to 101.5 degrees Fahrenheit, and additional compatible Ebola Virus Disease symptoms Patient denies exposure to infectious person Patient denies travel to an Ebola-affected area in the 21 days before illness onset. Screenin:07 Abuse screen: Denies threats or abuse. Denies injuries from another. Nutritional hj screening: No deficits noted. Tuberculosis screening: No symptoms or risk factors identified. Fall Risk None identified. Vital Signs: 08:07 Weight 72.57 kg; Height 5 ft. 0 in. (152.40 cm); hj 08:07 BP 127 / 76; Pulse 87; Resp 17; Temp 99.1(O); Pulse Ox 100% on R/A; mh5 08:07 Body Mass Index 31.25 (72.57 kg, 152.40 cm) hj Visual Acuity: 08:18 Left Eye Visual acuity 20/30, Normal, React To Light, Reactive To Accomodation; Right hj Eye Visual acuity 20/100, React To Light, Reactive To Accomodation; Both Eyes Visual acuity 20/25; Without Lenses; ED Course: 07:49 Patient arrived in ED. mr 07:49 None, None is Private Physician. mr 08:00 Seven Solano PA is PHCP. cp 08:00 Rashad Valentine MD is Attending Physician. cp 08:03 Skinny Henao RN is Primary Nurse. hj 08:05 Triage completed. hj 08:07 Arm band placed on right wrist. hj 08:07 Patient has correct armband on for positive identification. Bed in low position. Call hj light in reach. Side rails up X 1. 08:42 Maxime An MD is Referral Physician. cp 08:53 No provider procedures requiring assistance completed. Patient did not have IV access hj during this emergency room visit. Administered Medications: 08:10 Drug: Tetracaine Drops 0.5 % 1 drops Route: Ophthalmic; Site: right eye; hj Outcome: 08:43 Discharge ordered by . cp 08:53 Discharged to home ambulatory. hj 08:53 Condition: stable 08:53 Discharge instructions given to patient, Instructed on discharge instructions, follow up and referral plans. medication usage, Demonstrated understanding of instructions, follow-up care, medications, Prescriptions given X 1. 08:53 Patient left the ED. Signatures: Loyda Truong Skinny Henao, RN RN Seven Lockwood PA PA cp Martinez, Maria [facility]
[2018-01-17 08:58] VITALS: BP 127/76; TEMP 99.1; O2SAT 100
== END 2018-01-17 08:53 | disposition home or self-care (01) ==
LOC: ER 07:46
DX: H10.9 Unspecified conjunctivitis (principal); F41.9 Anxiety disorder, unspecified
CPT/HCPCS: 99283

== ENCOUNTER 2019-01-12 12:09 | Emergency (ER) | payer OTHER, SELFPAY ==
[2019-01-12] MEDS ORDERED: HYDROCODONE/APAP 7.5/325 MG TAB ONE (13:01)
--- NOTE | 2019-01-12 13:03 | RAD REPORT ---
EXAM DESCRIPTION: RAD - Ankle Right 3 View - 01/12/2019 12:57 pm CLINICAL HISTORY: Ankle pain, twisting injury COMPARISON: None. FINDINGS: No acute fracture is identified. A 6 millimeter bone density is present inferior to the ti p of the fibula. This has smooth margins and no cortical defects seen in the fibula. This may be an a ccessory ossicle or possibly the sequela of a remote ankle injury. Acute bone avulsion is not suspect ed. Small bone island is seen in the medial aspect of the distal tibia. Ankle mortise is normal. No p lantar spur. No joint effusion seen. No joint space narrowing. Significant lateral soft tissue swelli ng is present. No foreign body. IMPRESSION: Significant ankle soft tissue swelling with no acute fracture identifiable. Small bone density distal to the fibula is believed to be an accessory ossicle. Avulsion from the fib mitch is not currently suspected.
--- NOTE | 2019-01-12 13:08 | ER ---
Nurse's Notes [facility] Name: Anthony Johnson Age: 23 yrs Sex: Female : 1995 Arrival Date: 01/12/2019 Time: 12:12 Bed 12 Private MD: Diagnosis: Sprain of ankle Presentation: 01/12 12:15 Presenting complaint: Patient states: Right ankle pain and swelling with brusing, sg reports painful to walk on. Transition of care: patient was not received from another setting of care. Onset of symptoms was January 12, 2019. Risk Assessment: Do you want to hurt yourself or someone else? Patient reports no desire to harm self or others. Initial Sepsis Screen: Does the patient meet any 2 criteria? No. Patient's initial sepsis screen is negative. Does the patient have a suspected source of infection? No. Patient's initial sepsis screen is negative. Care prior to arrival: None. 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 - Social history:: Smoking status: Patient uses tobacco products. - Ebola Screening: : Patient negative for fever greater than or equal to 101.5 degrees Fahrenheit, and additional compatible Ebola Virus Disease symptoms Patient denies exposure to infectious person Patient denies travel to an Ebola-affected area in the 21 days before illness onset No symptoms or risks identified at this time. Screenin:45 Abuse screen: Denies threats or abuse. Denies injuries from another. Nutritional sg screening: No deficits noted. Tuberculosis screening: No symptoms or risk factors identified. Never had TB. Fall Risk None identified. Assessment: 12:30 General: Appears in no apparent distress. well groomed, well developed, well nourished, sg Behavior is calm, cooperative, appropriate for age. Pain: Complains of pain in right ankle Quality of pain is described as aching. Neuro: Level of Consciousness is awake, alert, obeys commands, Oriented to person, place, time, situation, Speech is normal, Facial symmetry appears normal. Cardiovascular: Capillary refill is brisk in bilateral fingers Patient's skin is warm and dry. Chest pain is denied. Respiratory: Airway is patent Respiratory effort is even, unlabored, Respiratory pattern is regular, symmetrical. GI: Abdomen is round non-distended. : No signs and/or symptoms were reported regarding the genitourinary system. EENT: No signs and/or symptoms were reported regarding the EENT system. Derm: Skin is pink, warm \T\ dry. Bruising that is green, on right ankle light purple. Musculoskeletal: Circulation, motion, and sensation intact. Range of motion: limited in right ankle Swelling present in right ankle Reports pain in right ankle. 12:50 Reassessment: xray at bedside at this time. sg 13:49 Reassessment: Patient appears in no apparent distress at this time. Patient is alert, ss oriented x 3, equal unlabored respirations, skin warm/dry/pink. Vital Signs: 12:17 BP 142 / 77; Pulse 78; Resp 17; Temp 97.7; Pulse Ox 99% on R/A; Weight 79.83 kg (R); sg Pain 8/10; 13:20 BP 133 / 62; Pulse 77; Resp 14; Temp 97.7; Pulse Ox 100% on R/A; Pain 3/10; sg ED Course: 12:12 Patient arrived in ED. mr 12:15 Triage completed. sg 12:15 Arm band placed on. sg 12:26 Leonard Jensen PA is PHCP. jr8 12:26 Domingo Rose MD is Attending Physician. jr8 12:30 Ice Pack applied, right leg elevated. sg 12:48 Dominik Bianchi, GUADALUPE is Primary Nurse. sg 12:53 Awaiting radiology results. sg 12:57 XRAY Ankle RIGHT 3 view In Process Unspecified. EDMS 13:07 Ralf Leblanc MD is Referral Physician. jr8 13:49 Patient has correct armband on for positive identification. ss 13:49 No provider procedures requiring assistance completed. Patient did not have IV access ss during this emergency room visit. Crutch training done. Piter wrap to right ankle. Administered Medications: 12:48 Drug: Weaver (7.5 mg-325 mg) 1 tabs Route: PO; sg 13:49 Follow up: Response: No adverse reaction; Pain is decreased ss Outcome: 13:07 Discharge ordered by MD. lebron 13:49 Discharged to home ambulatory, with crutches, with family. 13:49 Condition: good 13:49 Discharge instructions given to patient, family, Instructed on discharge instructions, follow up and referral plans. medication usage, crutch walking, Demonstrated understanding of instructions, follow-up care, medications. 13:54 Patient left the ED. Signatures: Dispatcher [employer] EDMS Dominik Bianchi RN RN Lakeshia Truong Shelby, RN RN ss Roszak, Josh, OPAL JOSEPH jr8 Corrections: (The following items were deleted from the chart) 12:58 12:30 Derm: Skin is pink, warm \T\ dry. [facility]
--- NOTE | 2019-01-12 13:08 | EDPHYS ---
Physician Documentation [facility] Name: Anthony Johnson Age: 23 yrs Sex: Female : 1995 Arrival Date: 01/12/2019 Time: 12:12 Bed 12 Private MD: ED Physician Domingo Rose HPI: 01/12 12:50 This 23 yrs old Female presents to ER via Ambulatory with complaints of Ankle jr8 Injury. 12:50 The patient presents with decreased range of motion, pain, swelling, tenderness. The jr8 complaints affect the right ankle. Onset: The symptoms/episode began/occurred acutely, yesterday. Context: The problem was sustained at home, resulted from the patient falling, The mechanism of injury involved inversion of the affected ankle. The patient can partially bear weight on the affected extremity. Associated signs and symptoms: The patient has no apparent associated signs or symptoms. Modifying factors: The symptoms are alleviated by nothing, the symptoms are aggravated by movement. Severity of symptoms: At their worst the symptoms were mild, in the emergency department the symptoms are unchanged. The patient has not experienced similar symptoms in the past. The patient has not recently seen a physician. 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 - Social history:: Smoking status: Patient uses tobacco products. - Ebola Screening: : Patient negative for fever greater than or equal to 101.5 degrees Fahrenheit, and additional compatible Ebola Virus Disease symptoms Patient denies exposure to infectious person Patient denies travel to an Ebola-affected area in the 21 days before illness onset No symptoms or risks identified at this time. ROS: 12:50 Eyes: Negative for injury, pain, redness, and discharge, ENT: Negative for injury, jr8 pain, and discharge, Neck: Negative for injury, pain, and swelling, Cardiovascular: Negative for chest pain, palpitations, and edema, Respiratory: Negative for shortness of breath, cough, wheezing, and pleuritic chest pain, Abdomen/GI: Negative for abdominal pain, nausea, vomiting, diarrhea, and constipation, Back: Negative for injury and pain, Skin: Negative for injury, rash, and discoloration, Neuro: Negative for headache, weakness, numbness, tingling, and seizure. 12:50 MS/extremity: Positive for decreased range of motion, pain, swelling, tenderness, of the right lateral ankle. Exam: 12:50 Eyes: Pupils equal round and reactive to light, extra-ocular motions intact. Lids and jr8 lashes normal. Conjunctiva and sclera are non-icteric and not injected. Cornea within normal limits. Periorbital areas with no swelling, redness, or edema. ENT: Nares patent. No nasal discharge, no septal abnormalities noted. Tympanic membranes are normal and external auditory canals are clear. Oropharynx with no redness, swelling, or masses, exudates, or evidence of obstruction, uvula midline. Mucous membranes moist. Neck: Trachea midline, no thyromegaly or masses palpated, and no cervical lymphadenopathy. Supple, full range of motion without nuchal rigidity, or vertebral point tenderness. No Meningismus. Cardiovascular: Regular rate and rhythm with a normal S1 and S2. No gallops, murmurs, or rubs. Normal PMI, no JVD. No pulse deficits. Respiratory: Lungs have equal breath sounds bilaterally, clear to auscultation and percussion. No rales, rhonchi or wheezes noted. No increased work of breathing, no retractions or nasal flaring. Abdomen/GI: Soft, non-tender, with normal bowel sounds. No distension or tympany. No guarding or rebound. No evidence of tenderness throughout. Back: No spinal tenderness. No costovertebral tenderness. Full range of motion. Skin: Warm, dry with normal turgor. Normal color with no rashes, no lesions, and no evidence of cellulitis. Neuro: Awake and alert, GCS 15, oriented to person, place, time, and situation. Cranial nerves II-XII grossly intact. Motor strength 5/5 in all extremities. Sensory grossly intact. Cerebellar exam normal. Normal gait. 12:50 Musculoskeletal/extremity: Extremities: grossly normal except: noted in the right lateral malleolus: pain, swelling, tenderness, ROM: intact in all extremities, full active range of motion, full passive range of motion, limited active range of motion, limited passive range of motion, Circulation is intact in all extremities. Sensation intact. Vital Signs: 12:17 BP 142 / 77; Pulse 78; Resp 17; Temp 97.7; Pulse Ox 99% on R/A; Weight 79.83 kg (R); sg Pain 8/10; 13:20 BP 133 / 62; Pulse 77; Resp 14; Temp 97.7; Pulse Ox 100% on R/A; Pain 3/10; sg Procedures: 13:06 Splinting: Splint applied to right ankle using piter wrap, applied by nurse. Examined by jr8 va, post splint application: neurovascular intact, 2+ distal pulses palpable, brisk capillary refill noted, Patient tolerated well. Crutch training provided to patient and/or family. Return demonstration given. MDM: 12:26 Patient medically screened. jr8 13:06 Data reviewed: vital signs, nurses notes, radiologic studies, plain films. Data jr8 interpreted: Pulse oximetry: on room air is 99 %. Interpretation: normal. Counseling: I had a detailed discussion with the patient and/or guardian regarding: the historical points, exam findings, and any diagnostic results supporting the discharge/admit diagnosis, radiology results, the need for outpatient follow up, a orthopedic surgeon, to return to the emergency department if symptoms worsen or persist or if there are any questions or concerns that arise at home. 01/12 12:30 Order name: XRAY Ankle RIGHT 3 view; Complete Time: 13:06 jr8 01/12 13:06 Order name: Piter Wrap; Complete Time: 13:48 8 01/12 13:06 Order name: Crutch Training; Complete Time: 13:48 jr8 Administered Medications: 12:48 Drug: Fayette (7.5 mg-325 mg) 1 tabs Route: PO; sg 13:49 Follow up: Response: No adverse reaction; Pain is decreased ss Disposition: 01/13 09:43 Co-signature as Attending Physician, Domingo Rose MD I agree with the assessment and wa plan of care. Disposition: 01/12/19 13:07 Discharged to Home. Impression: Sprain of ankle. - Condition is Stable. - Discharge Instructions: Ankle Sprain. - Prescriptions for Ibuprofen 800 mg Oral Tablet - take 1 tablet by ORAL route every 12 hours As needed take with food; 20 tablet. - Work release form, Medication Reconciliation Form, Thank You Letter, Antibiotic Education, Prescription Opioid Use form. - Follow up: Ralf Leblanc MD; When: 7 - 10 days; Reason: If symptoms return, Recheck today's complaints, Continuance of care, Re-evaluation by your physician. - Problem is new. - Symptoms have improved. Signatures: Dispatcher [employer] EDDominik Howell RN RN Gertrudis Mckay RN RN Leonard Herrera, OPAL JOSEPH jr8 Domingo Rose MD MD wa Corrections: (The following items were deleted from the chart) 01/12 13:54 13:07 01/12/2019 13:07 Discharged to Home. Impression: Sprain of ankle. Condition is ss Stable. Forms are Medication Reconciliation Form, Thank You Letter, Antibiotic Education, Prescription Opioid Use. Follow up: Dr. Ralf Leblanc; When: 7 - 10 days; Reason: If symptoms return, Recheck today's complaints, Continuance of care, Re-evaluation by your physician. Problem is new. Symptoms have improved. jr8
[2019-01-13 19:22] VITALS: BP 142/77; TEMP 97.7; O2SAT 99
== END 2019-01-12 13:54 | disposition home or self-care (01) ==
LOC: ER 12:09
DX: S93.401A Sprain of unspecified ligament of right ankle, initial encounter (principal); X58.XXXA Exposure to other specified factors, initial encounter; Y93.9 Activity, unspecified; Y92.9 Unspecified place or not applicable; Z72.0 Tobacco use
CPT/HCPCS: 99283

== ENCOUNTER 2020-02-16 12:06 | Emergency (ER) | payer BC, SELFPAY ==
--- OUTSIDE RECORDS SUMMARY | 2020-02-16 12:09 | XMS REPORT | Continuity of Care Document ---
:1995 Author Organization [facility] t Address [address] [place] [address] Care Team Providers Name Role Phone Karis Gross RN Attending Clinician Unavailable Doctor Unassigned, Name Attending Clinician Unavailable Margie Mina Attending Clinician Problems This patient has no known problems. Allergies, Adverse Reactions, Alerts This patient has no known allergies or adverse reactions. Medications This patient has no known medications. Procedures This patient has no known procedures. Encounters Start End Encounter Admission Attending Care Care Encounter Source Date/Time Date/Time Type Type Clinicians Facility Department ID 2020-02-13 2020-02-13 Nurse ANGELA Gross [id number] 00:00:00 00:00:00 Triage Breanna SCHNEIDER [id number] [place] [id number] 2019-12-10 2019-12-10 Orders Doctor MILLER [id number] 00:00:00 00:00:00 Only UnassignedWYATT [id number] [place] [facility] [id number] 2019-11-26 2019-11-26 Office NAM [place] [id number] 10:14:26 11:05:03 Visit Barbara Hanson [facility] [id number] [facility] [id number] MATERNAL [id number] & CHILD [address] [place] [address] Results This patient has no known results.
--- OUTSIDE RECORDS SUMMARY | 2020-02-16 12:10 | XMS REPORT | Summary of Care ---
:1995 Author Organization [facility] - Health Address [address] [place] [address] Care Team Providers Name Role Phone Bernice Lopez Primary Care Provider Encounter Details Date Type Department Care Team Description 12/10/2019 Orders Only [facility] Doctor Unassigned, No [address] [facility] [place] [address] [address] [place] [address] Allergies No Known Allergiesdocumented as of this encounter (statuses as of 12/10/2019) Medications Medication Sig Dispensed Refills Start Date End Date Status norgestimate-ethinyl Take 1 tablet by 4 Package 0 11/26/2019 Active estradiol (TRI-PREVIFEM) mouth daily. 0.18/0.215/0.25 mg-35 mcg (28) tabletIndications: Encounter for initial prescription of contraceptive pills documented as of this encounter (statuses as of 12/10/2019) Active Problems Problem Noted Date Encounter for initial prescription of contraceptive pi lls 08/25/2019 Obesity (BMI 30-39.9) 07/10/2016 History of migraine 02/13/2016 documented as of this encounter (statuses as of 12/10/2019) Resolved Problems Problem Noted Date Resolved Date Nexplanon in place 08/21/2016 08/25/2019 (spontaneous vaginal delivery) 08/13/201608/25 Need for prophylactic vaccination and inoculation against 08/25/2019 varicella 37 weeks gestation of 07/10/2016 08/12/19 17 Liveborn by vaginal delivery 07/10/201607/16 36 weeks gestation of 06/28/2016 08/12/19 17 Threatened premature labor in third trimester 06/28/2016 08/12/2016 Trichomonal vaginitis during in third trimester 08/12/2016 Threatened labor, third trimester 06/28/2016 08/13/2016 Encounter for suspected premature rupture of amniotic 201508/13/2016 membranes, with rupture of membranes not found Fall, subsequent encounter 06/05/2016 08/13/2016 High-risk , third trimester 05/24/2016 Supervision of normal , second trimester 02/13/2016 02/13/2016 Nosebleed 02/13/2016 08/25/2019 Tubal ligation status 02/13/2016 08/13/2016 Chlamydia infection complicating , first trimester 02/13/2016 08/13/2016 Elevated blood pressure reading without diagnosis of 016 08/25/2019 hypertension High-risk supervision, second trimester 02/13/2016 05/24/2016 documented as of this encounter (statuses as of 12/10/2019) Immunizations Name Administration Dates Next Due DTAP 04/09/1999, 03/11/1996 HEPATITIS A 06/29/2009 HIB 4 Dose Schedule 03/09/1996, 07/22/1995, 05/12/1995, 01/30/1995 HPV9 08/25/2019 Hep B, Adol or Pedi Dosage 07/22/1995, 01/30/1995, 5 Influenza Virus Vaccine Quad IM 3+ 05/07/2016 YRS MMR 04/09/1999, 03/09/1996 Meningococcal Vaccine 06/29/2009 Polio (IPV/OPV) 04/09/1999, 07/22/1995, 05/12/1995, 01/30/1995 Tdap 05/07/2016, 06/29/2009 Varicella (varivax)(chicken pox) 08/13/2016 017 documented as of this encounter Social History Tobacco Use Types Packs/Day Years Used Date Never Smoker Smokeless Tobacco: Never Used Alcohol Use Drinks/Week oz/Week Comments Yes 0 Standard drinks or equivalent 0.0 occasional Sex Assigned at Date Recorded Not on file Job Start Date Occupation Industry Not on file Not on file Not on file Travel History Travel Start Travel End No recent travel history available. COVID-19 Exposure Response Date Recorded In the last month, have you been in contact with No / Unsure 11/26/2019 10:28 AM CDT someone who was confirmed or suspected to have Coronavirus / COVID-19? documented as of this encounter Last Filed Vital Signs Not on filedocumented in this encounter Plan of Treatment Date Type Specialty Care Team Description 02/25/2020 Nurse Visit OB Satellites Visit, [facility] Nurse Health Maintenance Due Date Last Done Comments HPV VACCINES (2 - Female 09/22/2019 08/25/2019 3-dose series) INFLUENZA VACCINE (Season 08/25/2020 05/07/2016 Postpo anibal from Ended) 03/14/2020 (Refu sed) PAP SMEAR 08/25/2022 08/25/2019 DTaP,Tdap,and Td Vaccines 05/07/2026 05/07/2016, 06/29/2009 , (5 - Td) 04/09/1999, Additional history exists VARICELLA VACCINES Discontinued 08/13/2016 PNEUMOCOCCAL 0-64 YEARS Aged Out No longe r eligible COMBINED SERIES based on patient 's age to complete this topic documented as of this encounter Procedures Procedure Name Priority Date/Time Associated Diagnosis Comme nts EXTERNAL PROVIDER Routine 12/10/2019 12:01 AM CDT RECORDS documented in this encounter Results Not on filedocumented in this encounter Insurance Payer Benefit Plan Subscriber ID Effective Phone Address Typ e / Group Dates [facility] xxxxxxxxx 2019-Prese [phone] Medicaid WOMEN [address] [place] [address] documented as of this encounter
--- OUTSIDE RECORDS SUMMARY | 2020-02-16 12:10 | XMS REPORT | Summary of Care ---
:1995 Author Organization [facility] Address [address] [place] [id number] Care Team Providers Name Role Phone Bernice Lopez Primary Care Provider Reason for Visit Reason Comments Follow-up OCP Encounter Details Date Type Department Care Team Description 11/26/2019 [facility] Visit [facility] Barbara Vaca for initial prescription of contraceptive pills (Primary Dx); [facility] or test, negative result 1108 [facility] [address] [facility] [id number] [place], [place] [id number] Allergies No Known Allergiesdocumented as of this encounter (statuses as of 11/26/2019) Medications Medication Sig Dispensed Refills Start Date End Date Status norgestimate-ethiny Take 1 4 Package 0 11/26/2019 Active l estradiol tablet by (TRI-PREVIFEM) mouth daily. 0.18/0.215/0.25 mg-35 mcg (28) tabletIndications: Encounter for initial prescription of contraceptive pills norgestimate-ethiny Take 1 4 Package 0 08/25/2019 Discontinued l estradiol tablet by 0 (Reorder ) (TRI-PREVIFEM) mouth daily. 0.18/0.215/0.25 mg-35 mcg (28) tabletIndications: Encounter for initial prescription of contraceptive pills documented as of this encounter (statuses as of 11/26/2019) Active Problems Problem Noted Date Encounter for initial prescription of contraceptive pi lls 08/25/2019 Obesity (BMI 30-39.9) 07/10/2016 History of migraine 02/13/2016 documented as of this encounter (statuses as of 11/26/2019) Resolved Problems Problem Noted Date Resolved Date [...] as of this encounter (statuses as of 11/26/2019) Immunizations Name Administration Dates Next Due DTAP [...] of this encounter Last Filed Vital Signs Vital Sign Reading Time Taken Comments Blood Pressure 141/96 11/26/2019 10:29 AM CDT Pulse 94 11/26/2019 10:29 AM CDT Temperature 36.7 C (98.1 F) 11/26/2019 10:29 AM CDT Respiratory Rate 16 11/26/2019 10:29 AM CDT Oxygen Saturation - - Inhaled Oxygen Concentration - - Weight 81.3 kg (179 lb 3 oz) 11/26/2019 10:29 AM CDT Height 152.4 cm (5') 11/26/2019 10:29 AM CDT Body Mass Index 35 11/26/2019 10:29 AM CDT documented in this encounter Progress Notes Barbara Vaca, WHCNP - 11/26/2019 10:30 AM CDT Chief complaint: Chief Complaint Patient presents with Follow-up OCP HPI: the patient is here today for ocp follow up. She reports she is doing well today with no issuesor concerns today. She reports she desires to continue ocp for control. She reports the last time she took a pill was on yesterday. Histories OB History Para Term AB Living 2 2 2 3 SAB TAB Ectopic Multiple Live Births 2 # Outcome Date GA Lbr Raghav/2nd Weight Sex Delivery Anes PTL Lv 2 Term 07/10/16 37w6d 6 lb 1 oz (2.75 kg) M VAGINAL Other (com), IV narcotic SHANTEL 1 Term 05/07/10 38w0d 7 lb 11.5 oz (3.501 kg) M EPI N SHANTEL Past Medical History: Diagnosis Date Anemia not sure if she is now Anxiety resolved Chlamydia infection complicating , first trimester 02/13/2016 Family History Problem Relation Age of Onset Hypertension Father Asthma Sister Arthritis NoFHx defects NoFHx Breast Cancer NoFHx Colon Cancer NoFHx Ovarian Cancer NoFHx Uterine Cancer NoFHx Cancer NoFHx Depression NoFHx Diabetes NoFHx Genetic NoFHx Heart NoFHx High cholesterol NoFHx Mental retardation NoFHx Neurological NoFHx Osteoporosis NoFHx Psychiatry NoFHx Other - see comments NoFHx Family Status Relation Name Status Mo Alive Fa Alive Sis Alive MGMo Alive NoFHx (Not Specified) Past Surgical History: Procedure Laterality Date CONSULT INTERVENTIONAL RADIOLOGY 2011 Cyst on her tailbone removed KNEE ARTHROSCOPY 2014 Righ Knee OTHER 2012 cyst removal Social History Socioeconomic History Marital status: Single Spouse name: Not on file Number of children: 1 Years of education: 12+ Highest education level: Not on file Occupational History Occupation: [employer] Social Needs Financial resource strain: Not on file Food insecurity: Worry: Not on file Inability: Not on file Transportation needs: Medical: Not on file Non-medical: Not on file Tobacco Use Smoking status: Never Smoker Smokeless tobacco: Never Used Substance and Sexual Activity Alcohol use: Yes Alcohol/week: 0.0 standard drinks Comment: occasional Drug use: No Sexual activity: Yes Partners: Male control/protection: Implant Comment: last sexual intercourse 08/24/2019 Lifestyle Physical activity: Days per week: Not on file Minutes per session: Not on file Stress: Not on file Relationships Social connections: Talks on phone: Not on file Gets together: Not on file Attends alevism service: Not on file Active member of club or organization: Not on file Attends meetings of clubs or organizations: Not on file Relationship status: Not on file Intimate partner violence: Fear of current or ex partner: Not on file Emotionally abused: Not on file Physically abused: Not on file Forced sexual activity: Not on file Other Topics Concern Service Not Asked Blood Transfusions Not Asked Caffeine Concern Not Asked Occupational Exposure Not Asked Hobby Hazards Not Asked Sleep Concern Not Asked Stress Concern Not Asked Weight Concern Not Asked Special Diet Not Asked Back Care Not Asked Exercise Not Asked Bike Helmet Not Asked Seat Belt Yes Self-Exams Yes Social History Narrative Denies domestic or physical violence within the home Lives at home with her parents Denies Cats in the home Orthodox Preference: Gnosticism Social History Substance and Sexual Activity Sexual Activity Yes Partners: Male control/protection: Implant Comment: last sexual intercourse 08/24/2019 Labs No new labs and No visits with results within 3 Month(s) from this visit. Latest known visit with results is: Office Visit on 08/25/2019 Component Date Value POCT PREG 08/25/2019 Negative On board controls accept* 08/25/2019 Yes C. trachomatis Nucleic A* 08/25/2019 Negative N. gonorrhoeae Nucleic A* 08/25/2019 Negative Case Report 08/25/2019 Value:Gynecologic Cytology Case: [id number] Authorizing Provider: Bernice Lopez FNP Collected: 08/25/2019 1501 Ordering Location: [facility]- Received: 08/25/[address] [place] [address] Screen: Michelle Sanchez Pathologist: Zeenat Jean Baptiste MD Specimen: Liquid Based Pap Preparation, CERVIX Clinical Information 08/25/2019 Value:no pap history Specimen Adequacy 08/25/2019 Satisfactory for Evaluation(Endocervical/Transformation Zone Component Present) Interpretation 08/25/2019 Negative for intraepithelial lesion or malignancy Other Findings 08/25/2019 Keratotic Cellular Changes, Typical Parakeratosis Comments 08/25/2019 Value:This result contains rich text formatting which cannot be displayed here. LMP 08/25/2019 LMP (specify date in Comments) Educational Note 08/25/2019 Value:This result contains rich text formatting which cannot be displayed here. Radiology No new radiology. Allergies Anthony has No Known Allergies. Medications Anthony has a current medication list which includes the following prescription(s): norgestimate-ethinyl estradiol. Review of Systems Constitutional: Negative. HENT: Negative. Eyes: Negative. Respiratory: Negative. Breasts: Negative. Cardiovascular: Negative. Gastrointestinal: Negative. Genitourinary: Negative. Musculoskeletal: Negative. Skin: Negative. Neurological: Negative. Psychiatric/Behavioral: Negative. Endocrine: Endocrine negative BP (!) 141/96 (BP Location: Right arm, Patient Position: Sitting, BP CUFF SIZE: Adult Medium) | Pulse 94 | Temp 36.7 C (98.1 F) (Oral) | Resp 16 | Ht 5' (1.524 m) | Wt 179 lb 3 oz (81.3 kg) |LMP 11/12/2019 (Approximate) | BMI 35.00 kg/m Pregravid BMI: Could not be calculated Physical Exam Vitals reviewed. Constitutional: She is oriented to person, place, and time. She appears well- developed and well-nourished. Her body habitus is normal. Cardiovascular: Regular rate and rhythm. No peripheral edema present. Pulmonary/Chest: Normal inspiratory effort. Neuro/Psychiatric: She has a normal mood and affect. She is oriented to person, place, and time. Skin: Skin normal. No lesion, no rash and no ulceration present. Assessment/Plan Return to clinic in 12 weeks. 02/2020 for ocp follow up Encounter for initial prescription of contraceptive pills (primary encounter diagnosis) Comment: as ordered Plan: norgestimate-ethinyl estradiol (TRI-PREVIFEM) 0.18/0.215/0.25 mg-35 mcg (28) tablet examination or test, negative result Comment: as ordered Plan: POCT TEST This visit did not involve counseling and coordination that comprised more than 50% of the visit time. Asael Morales RN - 11/26/2019 10:30 AM CDTPatient present in clinic for OCP refill Dispensed OCPs from clinic stock x 4 Name: Trivifem LOT: [id number] Cont:886-Q Exp:05/2021. Patient provided with education both written and verbal on control method chosen. Instructed patient to use a back up method for one month. Educated patient to RTC in 3 months for refill/nurse visit. Patient verbalized understanding. ASAEL MORALES RN 11/26/2019 11:08 AM documented in this encounter Plan of Treatment Date Type Specialty Care Team Description 02/25/2020 [facility] Health Maintenance Due Date Last Done Comments HPV VACCINES (2 - Female 09/22/2019 08/25/2019 3-dose series) CHLAMYDIA SCREENING 08/25/2020 08/25/2019, 08/25/2019, 07/08/2016, Additional history exists INFLUENZA VACCINE (Season 08/25/2020 05/07/2016 Postpo anibal [...] Name Priority Date/Time Associated Diagnosis Comme nts POCT TEST Routine 11/26/2019 10:40 AM R esults for this CDT examination or test, procedu re are in negative result the results section. documented in this encounter Results POCT TEST (11/26/2019 10:40 AM CDT) Pathologist Sig nature POCT PREG Negative On board controls acceptable Yes with C Line POCT PREG LOT # POCT PREG TEST DATE Specimen Urine - URINE, CLEAN CATCH documented in this encounter Visit Diagnoses Diagnosis Encounter for initial prescription of co ntraceptive pills - Primary General counseling for prescription of o ral contraceptives examination or test, negative result documented in this encounter Insurance Payer Benefit Plan Subscriber ID Effective Phone Address Typ e / Group Dates [facility] xxxxxxxxx 2019-Prese [phone] Medicaid WOMEN nt [address] [place] [address] documented as of this encounter"
--- OUTSIDE RECORDS SUMMARY | 2020-02-16 12:10 | XMS REPORT | Summary of Care ---
:1995 Author Organization [facility] Address [address] [place] [address] Care Team Providers Name Role Phone Bernice Lopez Primary Care Provider Reason for Visit Reason Onset Date Comments Results 02/13/2020 Encounter Details Date Type Department Care Team Description 02/13/2020 Nurse Triage [facility] Breanna Gross, RN Results [address] [place] [phone] [place] [address] Allergies No Known Allergiesdocumented as of this encounter (statuses as of 02/13/2020) Medications Medication Sig Dispensed Refills Start Date End Date Status norgestimate-ethinyl Take 1 tablet by 4 Package 0 11/26/2019 Active estradiol (TRI-PREVIFEM) mouth daily. 0.18/0.215/0.25 mg-35 mcg (28) tabletIndications: Encounter for initial prescription of contraceptive pills documented as of this encounter (statuses as of 02/13/2020) Active Problems Problem Noted Date Encounter for initial prescription of contraceptive pi lls 08/25/2019 Obesity (BMI 30-39.9) 07/10/2016 History of migraine 02/13/2016 documented as of this encounter (statuses as of 02/13/2020) Resolved Problems Problem Noted Date Resolved Date Nexplanon in place 08/21/2016 08/25/2019 (spontaneous vaginal delivery) 08/13/201608/25 Need for prophylactic vaccination and inoculation against 08/25/2019 varicella 37 weeks gestation of 07/10/2016 08/12/19 17 Liveborn infant by vaginal delivery 07/10/201607/16 36 weeks gestation [...] as of this encounter (statuses as of 02/13/2020) Immunizations Name Administration Dates Next Due DTAP 04/09/1999, 03/11/1996 HEPATITIS A 06/29/2009 HIB 4 Dose Schedule 03/09/1996, 07/22/1995, 05/12/1995, 01/30/1995 HPV9 08/25/2019 Hep B, Adol or Pedi Dosage 07/22/1995, 01/30/1995, 5 Influenza Virus Vaccine Quad IM 3+ 05/07/2016 YRS MMR 04/09/1999, 03/09/1996 Meningococcal Vaccine 06/29/2009 Polio (IPV/OPV) 04/09/1999, 07/22/1995, 05/12/1995, 01/30/1995 TDAP 05/07/2016, 06/29/2009 Varicella (varivax)(chicken pox) 08/13/2016 017 documented as of this encounter Social History Tobacco Use Types Packs/Day Years Used Date Never Smoker Smokeless Tobacco: Never Used Alcohol Use Drinks/Week oz/Week Comments Yes 0 Standard drinks or equivalent 0.0 occasional Sex Assigned at Date Recorded Not on file documented as of this encounter Last Filed Vital Signs Not on filedocumented in this encounter Miscellaneous Notes Telephone Encounter - Breanna Gross RN - 02/13/2020 10:59 AM CDT Reason for Disposition [1] Other NON-URGENT information for PCP AND [2] does not require PCP response Protocols used: PCP CALL - NO [id number] Telephone Encounter - Breanna Gross RN - 02/13/2020 10:59 AM CDT 1059 Called patient. No answer. Left message would call back in a couple of minutes. 1109 Called patient. States she was tested on at [facility]. She just received her results today. It states "critical" on the test and she wants to know what that means. Patient advised to call [facility] to inquire since they are the ones who performed the test and would be able to interpret the resultvalues. [facility] Breanna Gross, MSN, RN-BC Telephone Encounter - Breanna Gross RN - 02/13/2020 10:59 AM CDTRegardinyr F loss of taste and smell, headache positve results covid ----- Message from Francis Crisostomo sent at 02/13/2020 10:59 AM CDT ----- Anthony Johnson is a 24 year old female The patient is calling in stating that she cannot smell or taste, and head hurts. She has just gotten test results back from [facility] and states it says critcal. She wants to know if she should go to an UC or ER, or what else she can do. documented in this encounter Plan of Treatment Date Type Specialty Care Team Description 02/25/2020 [facility] Health Maintenance Due Date Last Done Comments HPV VACCINES (2 - 3-dose 09/22/2019 08/25/2019 series) INFLUENZA VACCINE (#1) 2020 05/07/2016 Depression Screening 08/25/2020 08/25/2019 PAP SMEAR 08/25/2022 08/25/2019 DTaP,Tdap,and Td Vaccines 05/07/2026 05/07/2016, 06/29/2009 , (5 - Td) 04/09/1999, Additional history exists VARICELLA VACCINES Discontinued 08/13/2016 PNEUMOCOCCAL 0-64 YEARS Aged Out No longe r eligible COMBINED SERIES based on patient 's age to complete this topic documented as of this encounter Results Not on filedocumented in this encounter Insurance Payer Benefit Plan Subscriber ID Effective Phone Address Typ e / Group Dates [facility] [id number] 2019-Prese [phone] Medicaid WOMEN nt [address] [place] [address] documented as of this encounter
--- OUTSIDE RECORDS SUMMARY | 2020-02-16 12:10 | XMS REPORT | Summary of Care ---
:1995 Author Organization [facility] Address [address] [place] [address] Care Team Providers Name Role Phone Bernice Lopez Primary Care Provider Reason for Visit Reason Comments Follow-up OCP Encounter Details Date Type Department Care Team Description 11/26/2019 Office Visit [facility]- Barbara Vaca for initial prescription of contraceptive pills (Primary Dx); [facility] or test, negative result 1108 [facility] [address] [facility] [phone] [place], [place] [id number] Allergies No Known Allergiesdocumented as of this [...] file Gets together: Not on file Attends mosque service: Not on file Active member of [...] her parents Denies Cats in the home Mu-Ism Preference: Roman Catholic Social History Substance and Sexual Activity Sexual [...] Negative Case Report 08/25/2019 Value:Gynecologic Cytology Case: [id number] Authorizing Provider: Bernice Lopez FNP Collected: 08/25/2019 1502 Ordering Location: [facility]- Received: 08/25/[address] [place] [address] Screen: Michelle Sanchez Pathologist: Zeenat Jean Baptiste [...] clinic stock x 4 Name: Trivifem LOT: [id number] Cont:886-Q Exp:05/2021. Patient provided with education both written and verbal on control method chosen. Instructed patient to use a back up method for one month. Educated patient to RTC in 3 months for refill/nurse visit. Patient verbalized understanding. ASAEL MORALES RN 11/26/2019 11:08 AM documented in this encounter Plan of Treatment Date Type Specialty Care Team Description 02/25/2020 [facility] Health Maintenance Due Date Last Done [...] Address Typ e / Group Dates [facility] xxxxxxxxx 2019-Prese [phone] Medicaid WOMEN nt [address] [place] [address] documented as of this encounter"
[2020-02-16] MEDS ORDERED: dexAMETHasone 10 MG/ML VIAL ONE (15:00)
[2020-02-16 15:20] LABS: Basophils % 0.2 % (0-1.3); Hematocrit 43.4 % (36.0-45.0); Lymphocytes % 29.9 % (15.3-44.8); MPV 9.5 fL (7.6-11.3); RBC Red Blood Cell Count 5.08 M/uL (3.86-4.86)
[2020-02-16 15:35] LABS: ALT/SGPT 33 U/L (12-78); AST/SGOT 23 U/L (15-37); Albumin 3.6 g/dL (3.4-5.0); Alkaline Phosphatase 63 U/L (45-117); BUN Blood Urea Nitrogen 8 mg/dL (7-18); Bicarbonate 26 mmol/L (21-32); Bilirubin Total 0.2 mg/dL (0.2-1.0); Glucose Level 91 mg/dL (74-106); Potassium 3.8 mmol/L (3.5-5.1); Sodium Level 139 mmol/L (136-145)
[2020-02-16 16:09] LABS: Urine Glucose NEGATIVE (NEG); Urine Specific Gravity >1.030 (1.005-1.030)
[2020-02-16 16:10] LABS: Urine Blood NEGATIVE (NEG); Urine Protein TRACE (NEG)
--- NOTE | 2020-02-16 16:12 | RAD REPORT ---
EXAM DESCRIPTION: RAD - Chest Single View - 02/16/2020 3:49 pm CLINICAL HISTORY: shortness of breath, COVID positive COMPARISON: None TECHNIQUE: AP portable chest image was obtained 02/16/2020 3:49 pm . FINDINGS: Lungs are clear. Heart and vasculature are normal. No measurable pleural effusion and no p neumothorax. No acute bony abnormality seen. No acute aortic findings suspected. IMPRESSION: No acute cardiopulmonary process.
--- NOTE | 2020-02-16 16:44 | RAD REPORT ---
EXAM DESCRIPTION: CT - Chest For Pe Angio - 02/16/2020 4:19 pm CLINICAL HISTORY: shortness of breath COMPARISON: No comparisons TECHNIQUE: Dynamically enhanced 3 mm thick images of the chest were obtained during administration o f approximately 150mL Isovue 370 IV contrast. Coronal and oblique MIP reconstruction images were gene rated and reviewed. Exam utilizes a protocol to evaluate the pulmonary arterial tree. All CT scans are performed using dose optimization technique as appropriate and may include automated exposure control or mA/KV adjustment according to patient size. FINDINGS: No pulmonary emboli are identified. Pulmonary artery contrast density was not optimal but is felt to be sufficient for diagnosis. The aorta as imaged shows no acute or suspicious finding. No pericardial thickening or effusion. Ground-glass opacification is present predominantly in the left upper lobe. This is scattered in the bilateral lower lobes in the right middle lobe as well. Pattern is predominantly peripheral. This is a well described COVID-19 pneumonia pattern. No pleural effusion or pleural thickening. No mediastinal or hilar suspicious masses. No chest wall masses or abnormal axillary lymphadenopathy. IMPRESSION: No pulmonary emboli identified. Bilateral COVID-19 pneumonia pattern, mild to moderate in the left upper lobe, and mild elsewhere in the lung parenchyma.
--- NOTE | 2020-02-16 17:13 | ER ---
Nurse's Notes [facility] [place], [place] Name: Anthony Johnson Age: 24 yrs Sex: Female : 1995 Arrival Date: 02/16/2020 Time: 12:13 Bed 15 Private MD: Diagnosis: Viral Respiratory Illness Presentation: 02/15 12:42 Chief complaint: Chief complaint: Patient states: SOB at rest, worse with exertion ca1 since Friday. States, "almost pass out the other day when walking to the car because of the SOB" Hurts to breathe with chest pains. Coronavirus screen: Client denies travel out of the [place] in the last 14 days. chills, congestion, cough unrelated to allergies, diarrhea, fatigue, headache, muscle pain, nausea, runny nose, shortness of breath, sore throat, loss of taste or smell, Client presents with at least one sign or symptom that may indicate coronavirus-19. Standard/surgical mask placed on the client. Provider contacted for isolation considerations. Client reports previous positive COVID test result. Date of collection: February 10, 2020 [facility] Staff notified of need for isolation. Ebola Screen: Patient negative for fever greater than or equal to 101.5 degrees Fahrenheit, and additional compatible Ebola Virus Disease symptoms Patient denies exposure to infectious person. Patient denies travel to an Ebola-affected area in the 21 days before illness onset. No symptoms or risks identified at this time. Initial Sepsis Screen: Does the patient meet any 2 criteria? No. Patient's initial sepsis screen is negative. Does the patient have a suspected source of infection? No. Patient's initial sepsis screen is negative. Risk Assessment: Do you want to hurt yourself or someone else? Patient reports no desire to harm self or others. Onset of symptoms was February 16, 2020. 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 - Social history:: Smoking status: Patient denies any tobacco usage or history of. Screenin:38 Abuse screen: Denies threats or abuse. Denies injuries from another. Nutritional jr10 screening: No deficits noted. Tuberculosis screening: No symptoms or risk factors identified. Fall Risk None identified. Assessment: 14:35 General: Appears uncomfortable, Behavior is calm, cooperative, appropriate for age. jr10 Pain: Complains of pain in chest Pain does not radiate. Pain currently is 7 out of 10 on a pain scale. Quality of pain is described as pressure, Pain began Friday Is intermittent, Aggravated by deep breathing Noted to be grimacing. Neuro: No deficits noted. Cardiovascular: Reports chest pain, shortness of breath, Capillary refill < 3 seconds Pulses are all present. Edema is absent. Rhythm is regular. Respiratory: Reports shortness of breath at rest on exertion cough that is productive, pt reported, sputum not visualized pain with cough pain with respiration Airway is patent Respiratory effort is even, unlabored, Respiratory pattern is regular, symmetrical, Breath sounds are clear bilaterally. Onset: The symptoms/episode began/occurred Friday, pt reports that she was diagnosed COVID + , the patient has mild shortness of breath. GI: Abdomen is non-distended, Reports diarrhea, decreased appetite. : No deficits noted. No signs and/or symptoms were reported regarding the genitourinary system. EENT: No deficits noted. No signs and/or symptoms were reported regarding the EENT system. Derm: No deficits noted. No signs and/or symptoms reported regarding the dermatologic system. Musculoskeletal: Reports generalized fatigue. Vital Signs: 12:42 BP 122 / 89; Pulse 97; Resp 18 S; Temp 97.9(TE); Pulse Ox 99% on R/A; Height 5 ft. 0 ca1 in. (152.40 cm) (R); 14:34 BP 129 / 87; Pulse 93; Resp 20; Pulse Ox 100% on R/A; Pain 7/10; jr10 16:33 BP 134 / 89; Pulse 84; Resp 20; Pulse Ox 98% on R/A; jr10 17:40 BP 118 / 68; Pulse 92; Resp 20; Temp 98.2; Pulse Ox 98% on R/A; jr10 ED Course: 12:13 Patient arrived in ED. fj1 12:46 Triage completed. ca1 12:47 Arm band placed on right wrist. ca1 14:02 Audie Nichols PA is PHCP. jmm 14:02 Rashad Valentine MD is Attending Physician. jm 14:18 Ya Truong, RN is Primary Nurse. jr10 14:38 Patient has correct armband on for positive identification. Placed in gown. Bed in low jr10 position. Call light in reach. Side rails up X2. monitoring analyst on. Pulse ox on. NIBP on. 14:45 EKG done, by ED staff, reviewed by Audie JOSEPH. jp3 15:00 Initial lab(s) drawn, by me, sent to lab. Inserted saline lock: 20 gauge in right 3 antecubital area, using aseptic technique. Blood collected. 15:00 Patient maintains SpO2 saturation greater than 95% on room air. jp3 15:11 Warm blanket given. Verbal reassurance given. jp3 15:49 Chest Single View XRAY In Process Unspecified. EDMS 16:19 CT Chest For PE Angio In Process Unspecified. EDMS 17:40 No provider procedures requiring assistance completed. IV discontinued, bleeding jr10 controlled, No redness/swelling at site. Pressure dressing applied. Administered Medications: 15:17 Not Given (Duplicate Order): Decadron 10 mg IM once jmm 15:19 Drug: Decadron - Dexamethasone 10 mg Route: IVP; Site: right antecubital; jr10 15:42 Follow up: Response: No adverse reaction jr10 Outcome: 17:13 Discharge ordered by . jmm 17:40 Discharged to home ambulatory. jr10 17:40 Condition: improved 17:40 Discharge instructions given to patient, Instructed on discharge instructions, follow up and referral plans. Demonstrated understanding of instructions, follow-up care, medications, Prescriptions given X 1. 17:41 Patient left the ED. jr10 Signatures: Dispatcher [employer] [facility]VA Audie Nichols PA PA Carl Brunson jp3 Elham Maki RN RN Robert Stauffer 1 Ya Truong, GUADALUPE RN jr10
--- NOTE | 2020-02-16 17:13 | EDPHYS ---
Physician Documentation [facility] Name: Anthony Johnson Age: 24 yrs Sex: Female : 1995 Arrival Date: 02/16/2020 Time: 12:13 Bed 15 Private MD: ED Physician Rashad Valentine HPI: 02/15 17:09 This 24 yrs old Female presents to ER via Ambulatory with complaints of jmm COVID+, DIFF BREATHING, CHEST PAIN. 17:09 The patient or guardian reports cough. Onset: The symptoms/episode began/occurred jmm gradually, 6 day(s) ago. Modifying factors: The symptoms are alleviated by nothing. the symptoms are aggravated by nothing. Associated signs and symptoms: Pertinent positives: fever, sore throat. This is a 24 year old female with a history of anxiety that presents to the ED with complaints of cough, shortness of breath beginning approx 6 days ago. Patient tested positive for COVID - 19 with worsening shortness of breath for the past 2 days. . 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 - Social history:: Smoking status: Patient denies any tobacco usage or history of. ROS: 17:09 Constitutional: Positive for body aches, fever. jmm 17:09 Respiratory: Positive for cough, shortness of breath. 17:09 All other systems are negative. Exam: 17:09 Constitutional: This is a well developed, well nourished patient who is awake, alert, jmm and in no acute distress. Head/Face: atraumatic. Eyes: EOMI, no conjunctival erythema appreciated ENT: Moist Mucus Membranes Neck: Trachea midline, Supple Chest/axilla: Normal chest wall appearance and motion. Cardiovascular: Regular rate and rhythm. No edema appreciated Respiratory: Normal respirations, no respiratory distress appreciated Abdomen/GI: Non distended, soft Back: Normal ROM Skin: General appearance color normal MS/ Extremity: Moves all extremities, no obvious deformities appreciated, no edema noted to the lower extremities Neuro: Awake and alert, normal gait Psych: Behavior is normal, Mood is normal, Patient is cooperative and pleasant Vital Signs: 12:42 BP 122 / 89; Pulse 97; Resp 18 S; Temp 97.9(TE); Pulse Ox 99% on R/A; Height 5 ft. 0 ca1 in. (152.40 cm) (R); 14:34 BP 129 / 87; Pulse 93; Resp 20; Pulse Ox 100% on R/A; Pain 7/10; jr10 16:33 BP 134 / 89; Pulse 84; Resp 20; Pulse Ox 98% on R/A; jr10 17:40 BP 118 / 68; Pulse 92; Resp 20; Temp 98.2; Pulse Ox 98% on R/A; jr10 MDM: 15:31 Patient medically screened. madelin 17:11 Data reviewed: vital signs, nurses notes. Counseling: I had a detailed discussion with madelin the patient and/or guardian regarding: the historical points, exam findings, and any diagnostic results supporting the discharge/admit diagnosis, lab results, radiology results, the need for outpatient follow up, to return to the emergency department if symptoms worsen or persist or if there are any questions or concerns that arise at home. ED course: Patient is alert and non toxic in appearance in the ED. No PE appreciated on CT. Patient advised to quarantine and otherwise given strict return precautions. patient understood and agrees with the plan of care. . 02/15 14:44 Order name: CBC with Diff; Complete Time: 15:37 [facility] 02/15 14:44 Order name: CMP; Complete Time: 15:37 [facility] 02/15 14:44 Order name: Procalcitonin; Complete Time: 16:23 [facility] 02/15 14:44 Order name: Lactate; Complete Time: 15:37 [facility] 02/15 15:07 Order name: D-Dimer; Complete Time: 15:56 [facility] 02/15 16:04 Order name: Urine Dipstick--Ancillary (enter results); Complete Time: 16:23 02/15 14:33 Order name: EKG; Complete Time: 14:48 [facility] 02/15 14:33 Order name: EKG - Nurse/Tech; Complete Time: 14:33 [facility] 02/15 14:44 Order name: Saline Lock; Complete Time: 15:09 [facility] 02/15 14:44 Order name: Chest Single View XRAY; Complete Time: 16:23 [facility] 02/15 15:38 Order name: CT Chest For PE Angio; Complete Time: 16:47 [facility] 02/15 16:04 Order name: Urine --Ancillary (enter results); Complete Time: 16:23 02/15 15:38 Order name: Urine Test (obtain specimen); Complete Time: 16:17 [facility] Administered Medications: 15:17 Not Given (Duplicate Order): Decadron 10 mg IM once [facility] 15:19 Drug: Decadron - Dexamethasone 10 mg Route: IVP; Site: right antecubital; [facility] 15:42 Follow up: Response: No adverse reaction jr10 Disposition: 02/16 08:07 Co-signature as Attending Physician, Rashad Valentine MD I agree with the assessment and kdr plan of care. Disposition: 02/16/20 17:13 Discharged to Home. Impression: Viral Respiratory Illness. - Condition is Stable. - Discharge Instructions: Viral Respiratory Infection, COVID-19. - Prescriptions for Albuterol Sulfate 90 mcg/actuation - inhale 1-2 puff by INHALATION route every 4-6 hours; 1 Inhaler. - Medication Reconciliation Form, Thank You Letter, Antibiotic Education, Prescription Opioid Use form. - Follow up: Private Physician; When: 2 - 3 days; Reason: Recheck today's complaints, Continuance of care, Re-evaluation by your physician. Signatures: Dispatcher [employer] EDMS Rashad Valentine MD MD kdr Mickail, Joel, PA PA [facility] Elham Maki RN RN ca1 Rivera, Jessica, RN RN jr10 Corrections: (The following items were deleted from the chart) 02/15 17:41 17:13 02/16/2020 17:13 Discharged to Home. Impression: Viral Respiratory Illness. jr10 Condition is Stable. Forms are Medication Reconciliation Form, Thank You Letter, Antibiotic Education, Prescription Opioid Use. Follow up: Private Physician; When: 2 - 3 days; Reason: Recheck today's complaints, Continuance of care, Re-evaluation by your physician. [facility]
[2020-02-16 17:54] VITALS: O2SAT 98
[2020-02-16 17:55] VITALS: BP 118/68; TEMP 98.2
== END 2020-02-16 17:41 | disposition home or self-care (01) ==
LOC: ER 12:06
DX: B34.9 Viral infection, unspecified (principal)
CPT/HCPCS: 85025; 36415; 81025; 85379; 83605; 81003; 80053; 84145; 71275; 71045; Q9967; J1100; 93005; 96374; 99285

== ENCOUNTER 2022-06-07 01:13 | Emergency (ER) | payer BC, OTHER ==
--- OUTSIDE RECORDS SUMMARY | 2022-06-07 01:17 | XMS REPORT | Continuity of Care Document ---
:1995 Author Organization [facility] t Address [address] [place] [address] Care Team Providers Name Role Phone BERNICE CHOWDARY Primary Care Physician Unavailable BARBARA VACA Attending Clinician Unavailable MARTA CALVILLO THE Attending Clinician Unavailable Nola Barbara GRIFFITH Attending Clinician [phone] Erendira Greene RN Attending Clinician Unavailable BERNICE CHOWDARY Attending Clinician Unavailable Ranjan Mcclure DO Attending Clinician Bernice Warren Attending Clinician Doctor Unassigned, [place] Attending Clinician Unavailable Breanna Gross RN Attending Clinician Unavailable Payers Payer Name Policy Type Policy Number Effective Date Expiration Date [facility] [id number] 2021 CHOICE MEDICAID 00:00:00 [facility] [id number] 2019 00:00:00 Problems Condition Condition Condition Status Onset Resolution Last Treating Co mments Source Name Details Category Date Date Treatment Clinician Date At risk At risk Disease Active Univers for for 3-09 [place] Encounter Encounter Disease Active Uni vers for for 2-12 ity of initial initial 00:00: [place] prescripti prescripti 00 Me dical on of on of Branch contracept contracept nisa pills nisa pills Nexplanon Nexplanon Disease Active Uni vers in place in place 208 ity of 00:00: [place] 00 Medical Branch Disease Active Univers (spontaneo (spontaneo 08-13 [place] vaginal [place] vaginal [place] delivery[place] 00 [facility] Branch Need for Need for Disease Active Unive rs prophylact prophylact 08-13 it y of ic ic 00:00: [place] vaccinatio vaccinatio 00 Me dical n and n and Branch inoculatio inoculatio n against n against varicella varicella Obesity Obesity Disease Active 2015-07 Univers (BMI (BMI 2-28 ity of 30-39.9) 30-39.9) 00:00: [place] 00 Medical Branch History of History of Disease Active U nivers migraine migraine 02-12 ity of 00:00: [place] 00 Medical Branch Nosebleed Nosebleed Disease Active Uni vers 02-12 ity of 00:00: [place] 00 Medical Branch Elevated Elevated Disease Active Unive rs blood blood 02-12 ity of pressure pressure 00:00: [place] reading reading 00 Medical without without Branch diagnosis diagnosis of of hypertensi hypertensi on on Allergies, Adverse Reactions, Alerts Allergy Allergy Status Severity Reaction(s) Onset Inactive Treating Comm ents Source Name Type Date Date Clinician NO KNOWN Drug Active Univers ALLERGIE Class ity of [facility] [place] [facility] Social History Social Habit Start Date Stop Date Quantity Comments Source History [facility] [place] Alcohol Frequency Medical Branch History [facility] [place] Alcohol Std Drinks Medica l Branch History [facility] [place] Alcohol Binge Medical [facility] Exposure to 2021-12-22 2022-01-01 Not sure [facility] SARS-CoV-2 (event) 00:00:00 17:39:00 Medica l Branch Alcohol intake 2020-09-19 2020-09-19 0 /d [facility] 00:00:00 00:00:00 Medical Branch Alcohol Comment 2019-08-25 2019-08-25 occasional Universit [employer] [facility] 00:00:00 00:00:00 Medical Branch Tobacco use and 2016-02-13 2016-02-13 Never used Universit [facility] exposure 00:00:00 00:00:00 Medical Branch Sex Ass[birth year] At [birth year] [facility] [place] 00:00:00 00:00:00 Medical Branch Smoking Status Start Date Stop Date Source Never smoker [facility] Medications Ordered Filled Start Stop Current Ordering Indication Dosage Frequency Signature Comments Components Source Medication Medication Date Date Medication? Clinician (SIG) Name Name No known No Univers medications 3- ity of 13:40: [address] No known No Univers medications 3 ity of 13:40: [address] norgestimat 2020-0 Yes [id number] 1{tbl} Take 1 Univers e-ethinyl 5-15 tablet by ity o f estradiol 00:00: mouth [place] (TRI-PREVIF 00 daily. Medica l EM) Branch 0.18/0.215/ 0.25 mg-35 mcg (28) tablet norgestimat 2020-0 Yes [id number] 1{tbl} Take 1 Univers e-ethinyl 5-15 tablet by ity o f estradiol 00:00: mouth [place] (TRI-PREVIF 00 daily. Medica l EM) Branch 0.18/0.215/ 0.25 mg-35 mcg (28) tablet norgestimat 2020-0 Yes [id number] 1{tbl} Take 1 Univers e-ethinyl 5-15 tablet by ity o f estradiol 00:00: mouth [place] (TRI-PREVIF 00 daily. Medica l EM) Branch 0.18/0.215/ 0.25 mg-35 mcg (28) tablet norgestimat 2020-0 Yes [id number] 1{tbl} Take 1 Univers e-ethinyl 5-15 tablet by ity o f estradiol 00:00: mouth [place] (TRI-PREVIF 00 daily. Medica l EM) Branch 0.18/0.215/ 0.25 mg-35 mcg (28) tablet norgestimat 2020-0 Yes [id number] 1{tbl} Take 1 Univers e-ethinyl 5-15 tablet by ity o f estradiol 00:00: mouth [place] (TRI-PREVIF 00 daily. Medica l EM) Branch 0.18/0.215/ 0.25 mg-35 mcg (28) tablet norgestimat 2020-0 Yes [id number] 1{tbl} Take 1 Univers e-ethinyl 5-15 tablet by ity o f estradiol 00:00: mouth [place] (TRI-PREVIF 00 daily. Medica l EM) Branch 0.18/0.215/ 0.25 mg-35 mcg (28) tablet norgestimat 2019-2020- No [id number] 1{tbl} Take 1 Univers e-ethinyl 5-15 03-09 tablet by ity of estradiol 00:00: 00:00 mouth [place] (TRI-PREVIF 00 :00 daily. Medica l EM) Branch 0.18/0.215/ 0.25 mg-35 mcg (28) tablet norgestimat 2019-2020- No [id number] 1{tbl} Take 1 Univers e-ethinyl 5-15 03-09 tablet by ity of estradiol 00:00: 00:00 mouth [place] (TRI-PREVIF 00 :00 daily. Medica l EM) Branch 0.18/0.215/ 0.25 mg-35 mcg (28) tablet oseltamivir 2019- No Tamiflu 75 Univers (TAMIFLU) 2-12 02-12 mg capsule ity of 75 mg 19:54: 00:00 Take 1 [place] capsule 58 :00 capsule Medical twice a Branch day by oral route for 5 days. oseltamivir 2019- No Tamiflu 75 Univers (TAMIFLU) 2-12 02-12 mg capsule ity of 75 mg 19:54: 00:00 Take 1 [place] capsule 58 :00 capsule Medical twice a Branch day by oral route for 5 days. oseltamivir 2019- No Tamiflu 75 Univers (TAMIFLU) 2-12 02-12 mg capsule ity of 75 mg 19:54: 00:00 Take 1 [place] capsule 58 :00 capsule Medical twice a Branch day by oral route for 5 days. norgestimat 2020-0 Yes [id number] 1{tbl} Take 1 Univers e-ethinyl 2-12 tablet by ity o f estradiol 00:00: mouth [place] (TRI-PREVIF 00 daily. Medica l EM) Branch 0.18/0.215/ 0.25 mg-35 mcg (28) tablet norgestimat 2020- Yes [id number] 1{tbl} Take 1 Univers e-ethinyl 2-12 tablet by ity o f estradiol 00:00: mouth [place] (TRI-PREVIF 00 daily. Medica l EM) Branch 0.18/0.215/ 0.25 mg-35 mcg (28) tablet norgestimat 2020-0 Yes [id number] 1{tbl} Take 1 Univers e-ethinyl 2-12 tablet by ity o f estradiol 00:00: mouth [place] (TRI-PREVIF 00 daily. Medica l EM) Branch 0.18/0.215/ 0.25 mg-35 mcg (28) tablet norgestimat 2020-0 Yes [id number] 1{tbl} Take 1 Univers e-ethinyl 2-12 tablet by ity o f estradiol 00:00: mouth [place] (TRI-PREVIF 00 daily. Medica l EM) Branch 0.18/0.215/ 0.25 mg-35 mcg (28) tablet norgestimat 2020-0 Yes [id number] 1{tbl} Take 1 Univers e-ethinyl 2-12 tablet by ity o f estradiol 00:00: mouth [place] (TRI-PREVIF 00 daily. Medica l EM) Branch 0.18/0.215/ 0.25 mg-35 mcg (28) tablet norgestimat 2020-0 Yes [id number] 1{tbl} Take 1 Univers e-ethinyl 2-12 tablet by ity o f estradiol 00:00: mouth [place] (TRI-PREVIF 00 daily. Medica l EM) Branch 0.18/0.215/ 0.25 mg-35 mcg (28) tablet norgestimat 2020-0 2020- No [id number] 1{tbl} Take 1 Univers e-ethinyl 2-12 05-15 tablet by ity of estradiol 00:00: 00:00 mouth [place] (TRI-PREVIF 00 :00 daily. Medica l EM) Branch 0.18/0.215/ 0.25 mg-35 mcg (28) tablet norgestimat 2020-0 2020- No [id number] 1{tbl} Take 1 Univers e-ethinyl 2-12 05-15 tablet by ity of estradiol 00:00: 00:00 mouth [place] (TRI-PREVIF 00 :00 daily. Medica l EM) Branch 0.18/0.215/ 0.25 mg-35 mcg (28) tablet oseltamivir 2018-07 2020- No TAKE 1 Uni vers 75 mg 208-25 CAPSULE BY ity of capsule 00:00: 00:00 MOUTH [place] 00 :00 TWICE A Medical DAY FOR 5 Branch DAYS oseltamivir 2018-07 2020- No TAKE 1 Uni vers 75 mg 208-25 CAPSULE BY ity of capsule 00:00: 00:00 MOUTH [place] 00 :00 TWICE A Medical DAY FOR 5 Branch DAYS oseltamivir 2018-07 2020- No TAKE 1 Uni vers 75 mg 208-25 CAPSULE BY ity of capsule 00:00: 00:00 MOUTH [place] 00 :00 TWICE A Medical DAY FOR 5 Branch DAYS [id number] Yes 1{tbl} Take 1 Uni vers carb,glu-FA 9-15 tablet by ity of -DSS-dha 00:00: mouth [place] (CITRANATAL 00 daily. Medica l ASSURE) 35 Branch mg iron-1 mg -50 mg-300 mg combo pack [id number] 2020- No 1{tbl} Take 1 Un abilio carb,glu-FA 9-15 02-12 tablet by it y of -DSS-dha 00:00: 00:00 mouth [place] (CITRANATAL 00 :00 daily. Medica l ASSURE) 35 Branch mg iron-1 mg -50 mg-300 mg combo pack [id number] 2020- No 1{tbl} Take 1 Un abilio carb,glu-FA 9-15 02-12 tablet by it y of -DSS-dha 00:00: 00:00 mouth [place] (CITRANATAL 00 :00 daily. Medica l ASSURE) 35 Branch mg iron-1 mg -50 mg-300 mg combo pack [id number] 2020- No 1{tbl} Take 1 Un abilio carb,glu-FA 9-15 02-12 tablet by it y of -DSS-dha 00:00: 00:00 mouth [place] (CITRANATAL 00 :00 daily. Medica l ASSURE) 35 Branch mg iron-1 mg -50 mg-300 mg combo pack No known No Univers medications ity of [facility] [place] [facility] Immunizations Ordered Immunization Filled Immunization Date Status Commen ts Source Name Name Influenza Virus 2020-09-19 Completed Universit y of [facility] .5 mL 00:00:00 [facility] IM 6+ MO Branch HPV9 2020-09-19 Completed University of 00:00:00 [facility] [place] [facility] Influenza Virus 2020-09-19 Completed Universit y of [facility] .5 mL 00:00:00 [place] [facility] IM 6+ MO Branch HPV9 2020-09-19 Completed University of 00:00:00 [facility] [place] [facility] Influenza Virus 2020-09-19 Completed Universit y of Vacc[facility] .5 mL 00:00:00 [place] [facility] IM 6+ MO Branch HPV9 2020-09-19 Completed University of 00:00:00 [facility] [place] [facility] Influenza Virus 2020-09-19 Completed Universit y of [facility] .5 mL 00:00:00 [place] [facility] IM 6+ MO Branch HPV9 2020-09-19 Completed University of 00:00:00 [facility] [place] [facility] Influenza Virus 2020-09-19 Completed Universit y of Vacc[facility] .5 mL 00:00:00 [facility] IM 6+ MO Branch HPV9 2020-09-19 Completed University of 00:00:00 [facility] [place] [facility] HPV9 2019-08-25 Completed University of 00:00:00 [place] [facility] HPV9 2019-08-25 Completed University of 00:00:00 [place] [facility] HPV9 2019-08-25 Completed University of 00:00:00 [place] [facility] HPV9 2019-08-25 Completed University of 00:00:00 [place] [facility] HPV9 2019-08-25 Completed University of 00:00:00 [facility] Branch HPV9 2019-08-25 Completed University of 00:00:00 [place] [facility] HPV9 2019-08-25 Completed University of 00:00:00 [place] [facility] HPV9 2019-08-25 Completed University of 00:00:00 [place] [facility] HPV9 2019-08-25 Completed University of 00:00:00 [place] [facility] HPV9 2019-08-25 Completed University of 00:00:00 [place] [facility] HPV9 2019-08-25 Completed University of 00:00:00 [place] [facility] HPV9 2019-08-25 Completed University of 00:00:00 [place] [facility] HPV9 2019-08-25 Completed University of 00:00:00 [facility] Branch HPV9 2019-08-25 Completed University of 00:00:00 [facility] Branch HPV9 2019-08-25 Completed University of 00:00:00 [facility] [place] [facility] HPV9 2019-08-25 Completed University of 00:00:00 [facility] Branch HPV9 2019-08-25 Completed University of 00:00:00 [facility] Branch Varicella 2016-08-13 Completed University of (varivax)(chicken 00:00:00 [place] M edical pox) Branch Varicella 2016-08-13 Completed University of (varivax)(chicken 00:00:00 [place] M edical pox) Branch Varicella 2016-08-13 Completed University of (varivax)(chicken 00:00:00 [place] M edical pox) Branch Varicella 2016-08-13 Completed University of (varivax)(chicken 00:00:00 [place] M edical pox) Branch Varicella 2016-08-13 Completed University of (varivax)(chicken 00:00:00 [place] M edical pox) Branch Varicella 2016-08-13 Completed University of (varivax)(chicken 00:00:00 [place] M edical pox) Branch Varicella 2016-08-13 Completed University of (varivax)(chicken 00:00:00 [place] M edical pox) Branch Varicella 2016-08-13 Completed University of (varivax)(chicken 00:00:00 [place] M edical pox) Branch Varicella 2016-08-13 Completed University of (varivax)(chicken 00:00:00 [place] M edical pox) Branch Varicella 2016-08-13 Completed University of (varivax)(chicken 00:00:00 [place] M edical pox) Branch Varicella 2016-08-13 Completed University of (varivax)(chicken 00:00:00 [place] M edical pox) Branch Varicella 2016-08-13 Completed University of (varivax)(chicken 00:00:00 [place] M edical pox) Branch Varicella 2016-08-13 Completed University of (varivax)(chicken 00:00:00 [place] M edical pox) Branch Varicella 2016-08-13 Completed University of (varivax)(chicken 00:00:00 [place] M edical pox) Branch Varicella 2016-08-13 Completed University of (varivax)(chicken 00:00:00 [place] M edical pox) Branch Varicella 2016-08-13 Completed University of (varivax)(chicken 00:00:00 [place] M edical pox) Branch Varicella 2016-08-13 Completed University of (varivax)(chicken 00:00:00 [place] [facility] [place] pox) Branch Varicella 2016-08-13 Completed University of (varivax)(chicken 00:00:00 [place] M [facility]ical pox) Branch Tdap 2016-05-07 Completed University of 00:00:00 [facility] [place] [facility] Influenza Virus 2016-05-07 Completed Universit y of Vaccine Quad IM 3+ 00:00:00 [facility] Tdap 2016-05-07 Completed University of 00:00:00 [facility] [place] [facility] Influenza Virus 2016-05-07 Completed Universit y of Vaccine Quad IM 3+ 00:00:00 [facility] Tdap 2016-05-07 Completed University of 00:00:00 [facility] [place] [facility] Influenza Virus 2016-05-07 Completed Universit y of Vaccine Quad IM 3+ 00:00:00 [facility] TDAP 2016-05-07 Completed University of 00:00:00 [facility] [place] [facility] Influenza Virus 2016-05-07 Completed Universit y of Vaccine Quad IM 3+ 00:00:00 [facility] TDAP 2016-05-07 Completed University of 00:00:00 [facility] [place] [facility] Influenza Virus 2016-05-07 Completed Universit y of Vaccine Quad IM 3+ 00:00:00 [facility] TDAP 2016-05-07 Completed University of 00:00:00 [facility] [place] [facility] Influenza Virus 2016-05-07 Completed Universit y of Vaccine [facility] IM 3+ 00:00:00 [facility] Tdap 2016-05-07 Completed University of 00:00:00 [facility] [place] [facility] Influenza Virus 2016-05-07 Completed Universit y of Vaccine Quad IM 3+ 00:00:00 [facility] TDAP 2016-05-07 Completed University of 00:00:00 [facility] [place] [facility] Influenza Virus 2016-05-07 Completed Universit y of Vaccine Quad IM 3+ 00:00:00 [facility] TDAP 2016-05-07 Completed University of 00:00:00 [facility] [place] [facility] Influenza Virus 2016-05-07 Completed Universit y of Vaccine Quad IM 3+ 00:00:00 [facility] TDAP 2016-05-07 Completed University of 00:00:00 [facility] [place] [facility] Influenza Virus 2016-05-07 Completed Universit y of Vaccine Quad IM 3+ 00:00:00 [facility] TDAP 2016-05-07 Completed University of 00:00:00 [facility] [place] [facility] Influenza Virus 2016-05-07 Completed Universit y of Vaccine Quad IM 3+ 00:00:00 [facility] Tdap 2016-05-07 Completed University of 00:00:00 [facility] [place] [facility] Influenza Virus 2016-05-07 Completed Universit y of Vaccine Quad IM 3+ 00:00:00 [facility] TDAP 2016-05-07 Completed University of 00:00:00 [facility] [place] [facility] Influenza Virus 2016-05-07 Completed Universit y of Vaccine Quad IM 3+ 00:00:00 [facility] Tdap 2016-05-07 Completed University of 00:00:00 [facility] [place] [facility] Influenza Virus 2016-05-07 Completed Universit y of Vaccine Quad IM 3+ 00:00:00 [facility] Tdap 2016-05-07 Completed University of 00:00:00 [facility] [place] [facility] Influenza Virus 2016-05-07 Completed Universit y of Vaccine Quad IM 3+ 00:00:00 [facility] Tdap 2016-05-07 Completed University of 00:00:00 [facility] [place] [facility] Influenza Virus 2016-05-07 Completed Universit y of Vaccine Quad IM 3+ 00:00:00 [facility] Tdap 2016-05-07 Completed University of 00:00:00 [facility] [place] [facility] Influenza Virus 2016-05-07 Completed Universit y of Vaccine Quad IM 3+ 00:00:00 [facility] Tdap 2016-05-07 Completed University of 00:00:00 [facility] [place] [facility] Influenza Virus 2016-05-07 Completed Universit y of Vaccine Quad IM 3+ 00:00:00 [facility] HEPATITIS A 2009-06-29 Completed University of 00:00:00 [facility] [place] [facility] Meningococcal 2009-06-29 Completed University of Vaccine 00:00:00 [facility] [place] [facility] Tdap 2009-06-29 Completed University of 00:00:00 [facility] [place] [facility] HEPATITIS A 2009-06-29 Completed University of 00:00:00 [facility] [place] [facility] Meningococcal 2009-06-29 Completed University of Vaccine 00:00:00 [facility] [place] [facility] Tdap 2009-06-29 Completed University of 00:00:00 [facility] [place] [facility] HEPATITIS A 2009-06-29 Completed University of 00:00:00 [facility] [place] [facility] Meningococcal 2009-06-29 Completed University of Vaccine 00:00:00 [facility] [place] [facility] Tdap 2009-06-29 Completed University of 00:00:00 [facility] [place] [facility] HEPATITIS A 2009-06-29 Completed University of 00:00:00 [facility] Branch Meningococcal 2009-06-29 Completed University of Vaccine 00:00:00 [place] [facility] Tdap 2009-06-29 Completed University of 00:00:00 [facility] [place] [facility] HEPATITIS A 2009-06-29 Completed University of 00:00:00 [facility] [place] [facility] Meningococcal 2009-06-29 Completed University of Vaccine 00:00:00 [facility] Branch TDAP 2009-06-29 Completed University of 00:00:00 [facility] [place] [facility] HEPATITIS A 2009-06-29 Completed University of 00:00:00 [facility] Branch Meningococcal 2009-06-29 Completed University of Vaccine 00:00:00 [facility] Branch TDAP 2009-06-29 Completed University of 00:00:00 [facility] [place] [facility] HEPATITIS A 2009-06-29 Completed University of 00:00:00 [facility] [place] [facility] Meningococcal 2009-06-29 Completed University of Vaccine 00:00:00 [facility] [place] [facility] TDAP 2009-06-29 Completed University of 00:00:00 [facility] [place] [facility] HEPATITIS A 2009-06-29 Completed University of 00:00:00 [facility] [place] [facility] Meningococcal 2009-06-29 Completed University of Vaccine 00:00:00 [facility] [place] [facility] TDAP 2009-06-29 Completed University of 00:00:00 [facility] [place] [facility] HEPATITIS A 2009-06-29 Completed University of 00:00:00 [facility] [place] [facility] Meningococcal 2009-06-29 Completed University of Vaccine 00:00:00 [facility] [place] [facility] TDAP 2009-06-29 Completed University of 00:00:00 [facility] [place] [facility] HEPATITIS A 2009-06-29 Completed University of 00:00:00 [facility] [place] [facility] Meningococcal 2009-06-29 Completed University of Vaccine 00:00:00 [facility] [place] [facility] TDAP 2009-06-29 Completed University of 00:00:00 [facility] [place] [facility] HEPATITIS A 2009-06-29 Completed University of 00:00:00 [facility] Branch Meningococcal 2009-06-29 Completed University of Vaccine 00:00:00 [place] [facility] TDAP 2009-06-29 Completed University of 00:00:00 [facility] [place] [facility] HEPATITIS A 2009-06-29 Completed University of 00:00:00 [facility] [place] [facility] Meningococcal 2009-06-29 Completed University of Vaccine 00:00:00 [facility] [place] [facility] TDAP 2009-06-29 Completed University of 00:00:00 [facility] [place] [facility] DTAP 1999-04-09 Completed University of 00:00:00 [facility] [place] [facility] MMR 1999-04-09 Completed University of 00:00:00 [place] [facility] Polio (IPV/OPV) 1999-04-09 Completed Universit y of 00:00:00 [facility] Branch DTAP 1999-04-09 Completed University of 00:00:00 [facility] [place] [facility] MMR 1999-04-09 Completed University of 00:00:00 [facility] [place] [facility] Polio (IPV/OPV) 1999-04-09 Completed Universit y of 00:00:00 [facility] Branch DTAP 1999-04-09 Completed University of 00:00:00 [facility] [place] [facility] MMR 1999-04-09 Completed University of 00:00:00 [facility] Branch Polio (IPV/OPV) 1999-04-09 Completed Universit y of 00:00:00 [facility] [place] [facility] DTAP 1999-04-09 Completed University of 00:00:00 [facility] [place] [facility] MMR 1999-04-09 Completed University of 00:00:00 [facility] [place] [facility] Polio (IPV/OPV) 1999-04-09 Completed Universit y of 00:00:00 [facility] [place] [facility] DTAP 1999-04-09 Completed University of 00:00:00 [facility] [place] [facility] MMR 1999-04-09 Completed University of 00:00:00 [facility] Branch Polio (IPV/OPV) 1999-04-09 Completed Universit y of 00:00:00 [facility] [place] [facility] DTAP 1999-04-09 Completed University of 00:00:00 [facility] [place] [facility] MMR 1999-04-09 Completed University of 00:00:00 [facility] [place] [facility] Polio (IPV/OPV) 1999-04-09 Completed Universit y of 00:00:00 [place] [facility] DTAP 1999-04-09 Completed University of 00:00:00 [facility] [place] [facility] MMR 1999-04-09 Completed University of 00:00:00 [facility] Branch Polio (IPV/OPV) 1999-04-09 Completed Universit y of 00:00:00 [facility] Branch DTAP 1999-04-09 Completed University of 00:00:00 [facility] [facility] MMR 1999-04-09 Completed [facility] 00:00:00 [facility] Polio (IPV/OPV) 1999-04-09 Completed Universit y [facility] 00:00:00 [facility] DTAP 1999-04-09 Completed University of 00:00:00 [facility] MMR 1999-04-09 Completed University of 00:00:00 [facility] Polio (IPV/OPV) 1999-04-09 Completed Universit y of 00:00:00 [facility] DTAP 1999-04-09 Completed University of 00:00:00 [facility] MMR 1999-04-09 Completed University of 00:00:00 [facility] Polio (IPV/OPV) 1999-04-09 Completed Universit y of 00:00:00 [facility] DTAP 1999-04-09 Completed University of 00:00:00 [facility] MMR 1999-04-09 Completed University of 00:00:00 [facility] Polio (IPV/OPV) 1999-04-09 Completed Universit y of 00:00:00 [facility] DTAP 1999-04-09 Completed University of 00:00:00 [facility] MMR 1999-04-09 Completed University of 00:00:00 [facility] Polio (IPV/OPV) 1999-04-09 Completed Universit y of 00:00:00 [facility] DTAP 1996-03-11 Completed University of 00:00:00 [facility] DTAP 1996-03-11 Completed [facility] of 00:00:00 [facility] DTAP 1996-03-11 Completed University of 00:00:00 [facility] DTAP 1996-03-11 Completed University of 00:00:00 [facility] DTAP 1996-03-11 Completed University of 00:00:00 [facility] DTAP 1996-03-11 Completed University [facility] 00:00:00 [facility] DTAP 1996-03-11 Completed [facility] of 00:00:00 [facility] DTAP 1996-03-11 Completed University of 00:00:00 [facility] DTAP 1996-03-11 Completed University of 00:00:00 [facility] DTAP 1996-03-11 Completed University of 00:00:00 [facility] DTAP 1996-03-11 Completed University of 00:00:00 [facility] DTAP 1996-03-11 Completed University of 00:00:00 [facility] MMR 1996-03-09 Completed University of 00:00:00 [facility] HIB 4 Dose Schedule 1996-03-09 Completed Unive rsity of 00:00:00 [facility] MMR 1996-03-09 Completed [facility] 00:00:00 [facility] HIB 4 Dose Schedule 1996-03-09 Completed Unive rsity of 00:00:00 [facility] MMR 1996-03-09 Completed [facility] 00:00:00 [facility] HIB 4 Dose Schedule 1996-03-09 Completed Unive rsity of 00:00:00 [facility] MMR 1996-03-09 Completed University of 00:00:00 [facility] HIB 4 Dose Schedule 1996-03-09 Completed Unive rsity of 00:00:00 [facility] MMR 1996-03-09 Completed University of 00:00:00 [facility] HIB 4 Dose Schedule 1996-03-09 Completed Unive rsity of 00:00:00 [facility] MMR 1996-03-09 Completed University of 00:00:00 [facility] HIB 4 Dose Schedule 1996-03-09 Completed Unive rsity of 00:00:00 [facility] MMR 1996-03-09 Completed University of 00:00:00 [facility] HIB 4 Dose Schedule 1996-03-09 Completed Unive rsity of 00:00:00 [facility] MMR 1996-03-09 Completed University of 00:00:00 [facility] HIB 4 Dose Schedule 1996-03-09 Completed Unive rsity of 00:00:00 [facility] MMR 1996-03-09 Completed University of 00:00:00 [facility] HIB 4 Dose Schedule 1996-03-09 Completed Unive rsity of 00:00:00 [facility] MMR 1996-03-09 Completed University of 00:00:00 [facility] HIB 4 Dose Schedule 1996-03-09 Completed Unive rsity of 00:00:00 [facility] MMR 1996-03-09 Completed University of 00:00:00 [facility] HIB 4 Dose Schedule 1996-03-09 Completed Unive rsity of 00:00:00 [facility] MMR 1996-03-09 Completed University of 00:00:00 [facility] HIB 4 Dose Schedule 1996-03-09 Completed Unive rsity of 00:00:00 [facility] Hep B, Adol or Pedi 1995-07-22 Completed Unive rsity of Dosage 00:00:00 [facility] Polio (IPV/OPV) 1995-07-22 Completed Universit y of 00:00:00 [facility] HIB 4 Dose Schedule 1995-07-22 Completed Unive rsity of 00:00:00 [facility] Hep B, Adol or Pedi 1995-07-22 Completed Unive rsity of Dosage 00:00:00 [facility] Polio (IPV/OPV) 1995-07-22 Completed Universit y of 00:00:00 [facility] HIB 4 Dose Schedule 1995-07-22 Completed Unive rsity of 00:00:00 [facility] Hep B, Adol or Pedi 1995-07-22 Completed Unive rsity of Dosage 00:00:00 [facility] Polio (IPV/OPV) 1995-07-22 Completed Universit y of 00:00:00 [facility] HIB 4 Dose Schedule 1995-07-22 Completed Unive rsity of 00:00:00 [facility] Hep B, Adol or Pedi 1995-07-22 Completed Unive rsity of Dosage 00:00:00 [facility] Polio (IPV/OPV) 1995-07-22 Completed Universit y of 00:00:00 [facility] HIB 4 Dose Schedule 1995-07-22 Completed Unive rsity of 00:00:00 [facility] Hep B, Adol or Pedi 1995-07-22 Completed Unive rsity of Dosage 00:00:00 [facility] Polio (IPV/OPV) 1995-07-22 Completed [facility]it y of 00:00:00 [facility] HIB 4 Dose Schedule 1995-07-22 Completed Unive rsity of 00:00:00 [facility] Hep B, Adol or Pedi 1995-07-22 Completed Unive rsity of Dosage 00:00:00 [facility] Polio (IPV/OPV) 1995-07-22 Completed Universit y of 00:00:00 [facility] HIB 4 Dose Schedule 1995-07-22 Completed Unive rsity of 00:00:00 [facility] Hep B, Adol or Pedi 1995-07-22 Completed Unive rsity of Dosage 00:00:00 [facility] Polio (IPV/OPV) 1995-07-22 Completed Universit [facility] of 00:00:00 [facility] HIB 4 Dose Schedule 1995-07-22 Completed Unive rsity of 00:00:00 [facility] Hep B, Adol or Pedi 1995-07-22 Completed Unive rsity of Dosage 00:00:00 [facility] Polio (IPV/OPV) 1995-07-22 Completed Universit y of 00:00:00 [facility] HIB 4 Dose Schedule 1995-07-22 Completed Unive rsity of 00:00:00 [facility] Hep B, Adol or Pedi 1995-07-22 Completed Unive rsity of Dosage 00:00:00 [facility] Polio (IPV/OPV) 1995-07-22 Completed Universit y of 00:00:00 [facility] HIB 4 Dose Schedule 1995-07-22 Completed Unive rsity of 00:00:00 [facility] Hep B, Adol or Pedi 1995-07-22 Completed Unive rsity of Dosage 00:00:00 [facility] Polio (IPV/OPV) 1995-07-22 Completed Universit y of 00:00:00 [facility] HIB 4 Dose Schedule 1995-07-22 Completed Unive rsity of 00:00:00 [facility] Hep B, Adol or Pedi 1995-07-22 Completed Unive rsity of Dosage 00:00:00 [facility] Polio (IPV/OPV) 1995-07-22 Completed Universit y of 00:00:00 [facility] HIB 4 Dose Schedule 1995-07-22 Completed Unive rsity of 00:00:00 [facility] Hep B, Adol or Pedi 1995-07-22 Completed Unive rsity of Dosage 00:00:00 [facility] Polio (IPV/OPV) 1995-07-22 Completed Universit y of 00:00:00 [facility] HIB 4 Dose Schedule 1995-07-22 Completed Unive rsity of 00:00:00 [facility] Polio (IPV/OPV) 1995-05-12 Completed Universit y of 00:00:00 [facility] HIB 4 Dose Schedule 1995-05-12 Completed Unive rsity of 00:00:00 [facility] Polio (IPV/OPV) 1995-05-12 Completed Universit y of 00:00:00 [facility] HIB 4 Dose Schedule 1995-05-12 Completed Unive rsity of 00:00:00 [facility] Polio (IPV/OPV) 1995-05-12 Completed Universit y of 00:00:00 [facility] HIB 4 Dose Schedule 1995-05-12 Completed Unive rsity of 00:00:00 [facility] Polio (IPV/OPV) 1995-05-12 Completed Universit y of 00:00:00 [facility] HIB 4 Dose Schedule 1995-05-12 Completed Unive rsity of 00:00:00 [facility] Polio (IPV/OPV) 1995-05-12 Completed Universit y of 00:00:00 [facility] HIB 4 Dose Schedule 1995-05-12 Completed Unive rsity of 00:00:00 [facility] Polio (IPV/OPV) 1995-05-12 Completed Universit y of 00:00:00 [facility] HIB 4 Dose Schedule 1995-05-12 Completed Unive rsity of 00:00:00 [facility] Polio (IPV/OPV) 1995-05-12 Completed Universit y of 00:00:00 [facility] HIB 4 Dose Schedule 1995-05-12 Completed Unive rsity of 00:00:00 [facility] Polio (IPV/OPV) 1995-05-12 Completed Universit y of 00:00:00 [facility] HIB 4 Dose Schedule 1995-05-12 Completed Unive rsity of 00:00:00 [facility] Polio (IPV/OPV) 1995-05-12 Completed Universit y of 00:00:00 [facility] HIB 4 Dose Schedule 1995-05-12 Completed Unive rsity of 00:00:00 [facility] Polio (IPV/OPV) 1995-05-12 Completed Universit y of 00:00:00 [facility] HIB 4 Dose Schedule 1995-05-12 Completed Unive rsity of 00:00:00 [facility] Polio (IPV/OPV) 1995-05-12 Completed Universit y of 00:00:00 [facility] HIB 4 Dose Schedule 1995-05-12 Completed Unive rsity of 00:00:00 [facility] Polio (IPV/OPV) 1995-05-12 Completed Universit y of 00:00:00 [facility] HIB 4 Dose Schedule 1995-05-12 Completed Unive rsity of 00:00:00 [facility] Hep B, Adol or Pedi 1995-01-30 Completed Unive rsity of Dosage 00:00:00 [facility] Polio (IPV/OPV) 1995-01-30 Completed Universit y of 00:00:00 [facility] HIB 4 Dose Schedule 1995-01-30 Completed Unive rsity of 00:00:00 [facility] Hep B, Adol or Pedi 1995-01-30 Completed Unive rsity of Dosage 00:00:00 [facility] Polio (IPV/OPV) 1995-01-30 Completed Universit y of 00:00:00 [facility] HIB 4 Dose Schedule 1995-01-30 Completed Unive rsity of 00:00:00 [facility] Hep B, Adol or Pedi 1995-01-30 Completed Unive rsity of Dosage 00:00:00 [facility] Polio (IPV/OPV) 1995-01-30 Completed Universit y of 00:00:00 [facility] HIB 4 Dose Schedule 1995-01-30 Completed Unive rsity of 00:00:00 [facility] Hep B, Adol or Pedi 1995-01-30 Completed Unive rsity of Dosage 00:00:00 [facility] Polio (IPV/OPV) 1995-01-30 Completed Universit y of 00:00:00 [facility] HIB 4 Dose Schedule 1995-01-30 Completed Unive rsity of 00:00:00 [facility] Hep B, Adol or Pedi 1995-01-30 Completed Unive rsity of Dosage 00:00:00 [facility] Polio (IPV/OPV) 1995-01-30 Completed Universit y of 00:00:00 [facility] HIB 4 Dose Schedule 1995-01-30 Completed Unive rsity of 00:00:00 [facility] Hep B, Adol or Pedi 1995-01-30 Completed Unive rsity of Dosage 00:00:00 [facility] Polio (IPV/OPV) 1995-01-30 Completed Universit y of 00:00:00 [facility] HIB 4 Dose Schedule 1995-01-30 Completed Unive rsity of 00:00:00 [facility] Hep B, Adol or Pedi 1995-01-30 Completed Unive rsity of Dosage 00:00:00 [facility] Polio (IPV/OPV) 1995-01-30 Completed Universit y of 00:00:00 [facility] HIB 4 Dose Schedule 1995-01-30 Completed Unive rsity of 00:00:00 [facility] Hep B, Adol or Pedi 1995-01-30 Completed Unive rsity of Dosage 00:00:00 [facility] Polio (IPV/OPV) 1995-01-30 Completed Universit y of 00:00:00 [facility] HIB 4 Dose Schedule 1995-01-30 Completed Unive rsity of 00:00:00 [facility] Hep B, Adol or Pedi 1995-01-30 Completed Unive rsity of Dosage 00:00:00 [facility] Polio (IPV/OPV) 1995-01-30 Completed Universit y of 00:00:00 [facility] HIB 4 Dose Schedule 1995-01-30 Completed Unive rsity of 00:00:00 [facility] Hep B, Adol or Pedi 1995-01-30 Completed Unive rsity of Dosage 00:00:00 [facility] Polio (IPV/OPV) 1995-01-30 Completed Universit y of 00:00:00 [facility] HIB 4 Dose Schedule 1995-01-30 Completed Unive rsity of 00:00:00 [facility] Hep B, Adol or Pedi 1995-01-30 Completed Unive rsity of Dosage 00:00:00 [facility] Polio (IPV/OPV) 1995-01-30 Completed Universit y of 00:00:00 [facility] HIB 4 Dose Schedule 1995-01-30 Completed Unive rsity of 00:00:00 [facility] Hep B, Adol or Pedi 1995-01-30 Completed Unive rsity of Dosage 00:00:00 [facility] Polio (IPV/OPV) 1995-01-30 Completed Universit [facility] of 00:00:00 [facility] HIB 4 Dose Schedule 1995-01-30 Completed Unive rsity of 00:00:00 [facility] Hep B, Adol or Pedi 1994 Completed Unive rsity of Dosage 00:00:00 [facility] Hep B, Adol or Pedi 1994 Completed Unive rsity of Dosage 00:00:00 [facility] Hep B, Adol or Pedi 1994 Completed Unive rsity of Dosage 00:00:00 [facility] Hep B, Adol or Pedi 1994 Completed Unive rsity of Dosage 00:00:00 [facility] Hep B, Adol or Pedi 1994 Completed Unive rsity of Dosage 00:00:00 [facility] Hep B, Adol or Pedi 1994 Completed Unive rsity of Dosage 00:00:00 [facility] Hep B, Adol or Pedi 1994 Completed Unive rsity of Dosage 00:00:00 [facility] Hep B, Adol or Pedi 1994 Completed Unive rsity of Dosage 00:00:00 [facility] Hep B, Adol or Pedi 1994 Completed Unive rsity of Dosage 00:00:00 [facility] Hep B, Adol or Pedi 1994 Completed Unive rsity of Dosage 00:00:00 [facility] Hep B, Adol or Pedi 1994 Completed Unive rsity of Dosage 00:00:00 [facility] Hep B, Adol or Pedi 1994 Completed Unive rsity of Dosage 00:00:00 [facility] Vital Signs Vital Name Observation Time Observation Value Comments Source Systolic blood 2020-09-19 19:34:00 136 mm[Hg] Univer sity of pressure [facility] Diastolic blood 2020-09-19 19:34:00 74 mm[Hg] Unive rsity of [facility] Body temperature 2020-09-19 19:34:00 37 Radha [facility] Res[facility] rate 2020-09-19 19:34:00 16 /min [facility] Body height 2020-09-19 19:34:00 152.4 cm [facility] Body weight 2020-09-19 19:34:00 85.73 kg [facility] BMI 2020-09-19 19:34:00 36.91 kg/m2 [facility] Systolic blood 2019-11-26 15:29:00 141 mm[Hg] Univer sity of pressure [facility] Diastolic blood 2019-11-26 15:29:00 96 mm[Hg] Unive rsity of [facility] Heart rate 2019-11-26 15:29:00 94 /min [facility] Body temperature 2019-11-26 15:29:00 36.72 [facility]ha [facility] Respiratory rate 2019-11-26 15:29:00 16 /min [facility] Body height 2019-11-26 15:29:00 152.4 cm [facility]i [facility] of [facility] Body weight 2019-11-26 15:29:00 81.279 kg [facility] BMI 2019-11-26 15:29:00 35.00 kg/m2 [facility] Systolic blood 2019-11-26 15:29:00 141 mm[Hg] Univer sity of pressure [facility] Diastolic blood 2019-11-26 15:29:00 96 mm[Hg] Unive rsity of pressure [facility] Heart rate 2019-11-26 15:29:00 94 /min Universi ty of [facility] Body temperature 2019-11-26 15:29:00 36.72 Radha Univ ersity of [facility] Respiratory rate 2019-11-26 15:29:00 16 /min Univ ersity of [facility] Body height 2019-11-26 15:29:00 152.4 cm Universi ty of [facility] Body weight 2019-11-26 15:29:00 81.279 kg Universi ty of [facility] BMI 2019-11-26 15:29:00 35.00 kg/m2 Universi ty of [facility] Systolic blood 2019-08-25 19:34:00 137 mm[Hg] Univer sity of pressure [facility] Diastolic blood 2019-08-25 19:34:00 79 mm[Hg] Unive rsity of pressure [facility] Heart rate 2019-08-25 19:34:00 82 /min [facility] Body temperature 2019-08-25 19:34:00 36.5 Radha Univ ersity of [facility] Respiratory rate 2019-08-25 19:34:00 18 /min Univ ersity of [facility] Body height 2019-08-25 19:34:00 152.4 cm [facility] Body weight 2019-08-25 19:34:00 85.305 kg [facility] BMI 2019-08-25 19:34:00 36.73 kg/m2 [facility] Procedures Procedure Date / Time Performed Performing Clinician Sour e POCT TEST 2020-09-19 20:08:00 [facility] GARDASIL 9 (HPV 9V) 2020-09-19 19:51:16 Bernice Chowdary [facility] VACCINE [facility] FLU VACC ([id number]), 2020-09-19 19:51:16 Bernice Chowdary [facility] 6+ MONTHS, IM, QUAD Medical Bran ch ASSIGNMENT OF BENEFITS 2020-09-19 18:55:28 Doctor Unassigned, No [facility] EXTERNAL PROVIDER 2019-12-10 05:01:00 Doctor Unassigned, No [facility] [place] POCT TEST 2019-11-26 15:40:00 Barbara Vaca [facility] PAP SMEAR-LIQUID 2019-08-25 21:08:00 Bernice Chowdary [facility] POCT TEST 2019-08-25 21:07:00 Bernice Chowdary [facility] GARDASIL 9 (HPV 9V) 2019-08-25 19:49:05 Bernice Chowdary [facility] ASSIGNMENT OF BENEFITS 2019-08-25 19:11:54 Doctor Unassigned, No [facility] Encounters Start End Encounter Admission Attending Care Care Encounter Source Date/Time Date/Time Type Type Clinicians Facility Department ID 2022-03-22 2022-03-22 Outpatient R NOLA, [facility] [id number] Univers 14:15:00 14:15:00 BARBARA ity o f [facility] 2022-03-15 2022-03-15 Outpatient R NOLA, [facility] [id number] Univers 13:30:00 13:30:00 BARBARA ity o f [facility] 2022-03-08 2022-03-08 Outpatient R AKINSIPE, [facility] [id number] Univers 12:45:00 12:45:00 BARBARA ity o f [facility] 2022-01-02 2022-01-02 Emergency E KARLI, [facility] [id number] [facility] 11:15:00 18:57:00 MARTA 2022-01-02 2022-01-02 Outpatient R AKINSIPE, [facility] [id number] Univers 15:30:00 15:30:00 BARBARA ity o f [facility] 2022-01-02 2022-01-02 Outpatient R NOLA [facility] [id number] Univers 13:15:00 13:15:00 BARBARA wellergaudencio o f [facility] 2022-01-02 2022-01-02 [facility] [id number] Univers 00:00:00 00:00:00 Barbara Hanson [employer] [id number] [facility] [id number] [place] MATERNAL [id number] [facility] ical & CHILD [address] [place] [address] 2022-01-01 2022-01-01 Nurse Erendira Greene [id number] Univers 00:00:00 00:00:00 Triage WYATT [id number] it y of [facility] [id number] [place] [id number] [address] 2020-10-20 2020-10-20 [facility] [id number] Univers 09:30:00 09:30:00 BERNICE saldaña [facility] 2020-10-03 2020-10-03 Outpatient R [facility] [id number] Univers 14:00:00 14:00:00 piper [facility] 2020-10-03 2020-10-03 [facility] [id number] Univers 00:00:00 00:00:00 Outreach Ranjan OLIVEROS [id number] i ty of [facility] [id number] [place] [id number] Vt dical [address] [place] [address] 2020-09-19 2020-09-19 Office [facility] [id number] Univers 12:56:15 14:21:45 Visit Bernice Sherwood [employer] [id number] [facility] [id number] [place] MATERNAL [id number] [facility] ical & CHILD [address] [place] [address] 2020-09-19 2020-09-19 [facility] [id number] Univers 14:00:00 14:00:00 BERNICE saldaña [facility] 2020-09-19 2020-09-19 Orders Doctor ANGELA Ivy.[id number] Univers 00:00:00 00:00:00 Only Unassigned, [place] [id number] ity of [facility] [id number] [place] [id number] [address] 2020-07-05 2020-07-05 Telephone [facility] [id number] Univers 00:00:00 00:00:00 Bernice Presley [employer] [id number] it y of [facility] [id number] [place] MATERNAL [id number] Med ical & CHILD [address] [place] [address] 2020-02-25 2020-02-25 Outpatient R [facility] [id number] Univers 10:30:00 10:30:00 ity of [facility] 2020-02-13 2020-02-13 Nurse ANGELA Gross [id number] 00:00:00 00:00:00 Triage Breanna Dyson [facility] [id number] [facility] [id number] 2020-02-13 2020-02-13 ANGELA Hoffman [id number] Univers 00:00:00 00:00:00 Triage Breanna FERRARIY [id number] i ty of HOSPITAL [id number] [place] [id number] [address] 2019-12-10 2019-12-10 Orders Doctor ANGELA [id number] 00:00:00 00:00:00 Only Unassigned, [place] [id number] [facility] [id number] [id number] 2019-12-10 2019-12-10 Orders Doctor ANGELA [id number] Univers 00:00:00 00:00:00 Only Unassigned, [place] [id number] ity of [facility] [id number] [place] [id number] [address] 2019-11-26 2019-11-26 Office Akinsipe, [facility] [id number] 10:14:26 11:05:03 Visit Barbara Hanson [employer] [id number] REGIONAL [id number] MATERNAL [id number] & CHILD [address] [place] [address] 2019-11-26 2019-11-26 Office Janipe, [facility] [id number] [facility] 10:14:26 11:05:03 Visit Barbara Hanson FELLER HAND [id number] ity of REGIONAL [id number] [place] as MATERNAL [phone] Med ical & CHILD [address] [place] [address] 2019-11-26 2019-11-26 [facility] [id number] Univers 10:30:00 10:30:00 BARBARA wright [facility] 2019-11-19 2019-11-19 Outpatient R NOL[facility] [id number] Univers 13:15:00 13:15:00 BARBARA wright [facility] 2019-09-16 2019-09-16 Patient Doctor [facility] [id number] Univers 00:00:00 00:00:00 Secure Msg Unassigned, FELLER HAND [id number] ity of [place]IONAL [id number] [place] MATERNAL [phone] Med ical & CHILD [address] [place] [address] 2019-09-02 2019-09-02 [facility] [id number] Univers 00:00:00 00:00:00 Bernice Sherwood FELLER HAND [id number] it y of [facility] [id number] [place] MATERNAL [id number] Med ical & CHILD [address] [place] [address] 2019-08-26 2019-08-26 Telephone [facility] [id number] Univers 00:00:00 00:00:00 Bernice N FELLER HAND [id number] it y of [facility] [id number] [place] MATERNAL [phone] Med ical & CHILD [address] [place] [address] 2019-08-25 2019-08-25 Office Ricarda, [facility] [id number] Univers 13:19:57 14:47:05 Visit Bernice Sher[place] FELLER HAND [id number] it y of [facility] [id number] [place] MATERNAL [phone] Med ical & CHILD [facility] 2019-08-25 2019-08-25 Orders Doctor ANGELA [id number] Univers 00:00:00 00:00:00 Only Unassigned, WYATT [id number] ity of [place] [facility] [id number] [place] as [phone] [address] Results Test Description Test Time Test Comments Results Result Comments Source POCT TEST 2020-09-19 20:08:00 Test Item Value Reference Range Interpretation Comme nts POCT PREG (test code = 1605) Negative On board controls acceptable with C Line (test code = 3574) Yes POCT PREG LOT # (test code = 3575) [facility]test [facility] 3576[id number] 20:08:00 Test Item Value Reference Range Interpretation Comments POCT PREG (test code = 1605) Negative On board controls acceptable with C Yes Line (test code = 3574) POCT PREG LOT # (test code = 3575) POCT PREG TEST DATE (test code = 3576[id number] 15:40:00 Test Item Value Reference Range Interpretation Comments POCT PREG (test code = 1605) Negative On board controls acceptable with C Yes Line (test code = 3574) POCT PREG LOT # (test code = 3575) POCT [facility]REG TEST DATE (test code = 3576[id number] 15:40:00 Test Item Value Reference Range Interpretation Comments POCT PREG (test code = 1605) Negative On board controls acceptable with C Yes Line (test code = 3574) POCT PREG LOT # (test code = 3575) [facility]REG [facility] DATE (test code = 3576[id number] 21:08:00 Test Item Value Reference Range Interpretation Comments POCT PREG (test code = 1605) Negative On board controls acceptable with C Yes Line (test code = 3574) POCT PREG LOT # (test code = 3575) POCT PREG TEST DATE (test code = 3576[facility] [id number] 21:08:00 Test Item Value Reference Range Interpretation Comments POCT PREG (test code = 1605) Negative On board controls acceptable with C Yes Line (test code = 3574) POCT PREG LOT # (test code = 3575) POCT PREG TEST DATE (test code = 3576[facility] [id number] 21:08:00 Test Item Value Reference Range Interpretation Comments POCT PREG (test code = 1605) Negative On board controls acceptable with C Yes Line (test code = 3574) POCT PREG LOT # (test code = 3575) POCT PREG TEST DATE (test code = 3576) [facility]
[2022-06-07] MEDS ORDERED: HYDROCODONE/APAP 10/325 TAB ONE (01:42)
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
[2022-06-07] MEDS ORDERED: IBUPROFEN 400 MG TAB ONE (02:19)
[2022-06-07 02:36] VITALS: TEMP 98.3
[2022-06-07 02:37] VITALS: BP 125/55; O2SAT 97
--- NOTE | 2022-06-07 17:08 | RAD REPORT ---
EXAM DESCRIPTION: RAD - Knee Right 3 View - 06/07/2022 1:39 am CLINICAL HISTORY: 26 years, Female, PAIN COMPARISON: None. FINDINGS: 3 X-ray views of the right knee (Frontal, lateral and oblique views) were performed. There is no evidence for fracture or dislocation. There are no gross intraosseous lesions. No eduardo ss articular or soft tissue abnormality is identified. There is no joint effusion. There is no pe riostitis. IMPRESSION: No acute osseous abnormality. Electronically signed by: Villa Elise MD 06/07/2022 1:52 AM EQUITY ANALYST Due to temporary technical issues with the PACS/Fluency reporting system, reports are being signed by the in house radiologists without review as a courtesy to insure prompt reporting. The interpreting radiologist is fully responsible for the content of the report.
== END 2022-06-07 02:26 | disposition home or self-care (01) ==
LOC: ER 01:13
DX: M23.91 Unspecified internal derangement of right knee (principal); Z88.0 Allergy status to penicillin
CPT/HCPCS: 99284